=== PATIENT | male | born 1960 | race Caucasian/White ===

== ENCOUNTER → 2017-11-13 08:23 | Outpatient (CLI) | payer BC, SELFPAY ==
[2017-11-13 10:55] LABS: Anion Gap 9 (5-15); BUN 20 mg/dL (7-18); BUN/Creat Ratio 14.9 RATIO (10-20); Calcium,Total 9.4 mg/dL (8.5-10.1); Chloride 102 mmol/L (98-107); Cholesterol 133 mg/dL (200); Creatinine, Serum 1.34 mg/dL (0.70-1.30); EST Glomerular Filtration Rate 59 mL/min (>60); Est Glom Filt Rate - Afr Amer 71 mL/min (>60); Glucose 112 mg/dL (74-106); High Density Lipoprotein 44 mg/dL; PSA,Total - Annual Screen 1.55 ng/mL (0.00-4.00); Potassium 3.3 mmol/L (3.5-5.1); Sodium Level 141 mmol/L (136-145); Triglycerides 72 mg/dL; Very Low Density Lipoprotein 14 mg/dL (5-40)
== END ==
PROVIDERS: Family Provider Family Medicine; PCP Family Medicine; Visit Provider Family Medicine
DX: I10 Essential (primary) hypertension (principal); E78.00 Pure hypercholesterolemia, unspecified; Z12.5 Encounter for screening for malignant neoplasm of prostate
CPT/HCPCS: 36415; 80048; 80061; 84153; G0103

== ENCOUNTER → 2018-11-05 08:03 | Outpatient (CLI) | payer BC, SELFPAY ==
[2018-11-05 10:30] LABS: Anion Gap 5 (5-15); BUN 13 mg/dL (7-18); BUN/Creat Ratio 12.3 RATIO (10-20); Calcium,Total 9.2 mg/dL (8.5-10.1); Chloride 106 mmol/L (98-107); Cholesterol 163 mg/dL (200); Creatinine, Serum 1.06 mg/dL (0.70-1.30); EST Glomerular Filtration Rate 77 mL/min (>60); Est Glom Filt Rate - Afr Amer 93 mL/min (>60); Glucose 106 mg/dL (74-106); High Density Lipoprotein 47 mg/dL; Potassium 3.6 mmol/L (3.5-5.1); Sodium Level 141 mmol/L (136-145); Triglycerides 113 mg/dL; Very Low Density Lipoprotein 23 mg/dL (5-40)
== END ==
PROVIDERS: Family Provider Family Medicine; PCP Family Medicine; Referring Provider Family Medicine; Visit Provider Family Medicine
DX: E78.00 Pure hypercholesterolemia, unspecified (principal); I10 Essential (primary) hypertension; Z12.5 Encounter for screening for malignant neoplasm of prostate
CPT/HCPCS: 36415; 80048; 80061; 84153; G0103

== ENCOUNTER → 2019-04-02 08:08 | Outpatient (CLI) | payer BC, SELFPAY ==
[2019-04-02 10:59] LABS: Anion Gap 5 (5-15); BUN 13 mg/dL (7-18); BUN/Creat Ratio 11.6 RATIO (10-20); Calcium,Total 9.2 mg/dL (8.5-10.1); Chloride 106 mmol/L (98-107); Creatinine, Serum 1.12 mg/dL (0.70-1.30); EST Glomerular Filtration Rate 72 mL/min (>60); Est Glom Filt Rate - Afr Amer 87 mL/min (>60); Glucose 107 mg/dL (74-106); Potassium 3.6 mmol/L (3.5-5.1); Sodium Level 139 mmol/L (136-145)
== END ==
PROVIDERS: Family Provider Family Medicine; PCP Family Medicine; Referring Provider Family Medicine; Visit Provider Orthopaedic Surgery
DX: M19.012 Primary osteoarthritis, left shoulder (principal); M25.512 Pain in left shoulder; M75.22 Bicipital tendinitis, left shoulder; S43.432A Superior glenoid labrum lesion of left shoulder, initial encounter; M75.112 Incomplete rotator cuff tear or rupture of left shoulder, not specified as traumatic
CPT/HCPCS: 36415; 80048

== ENCOUNTER 2019-06-27 16:30 | Outpatient (RCR) | payer BC, SELFPAY ==
--- NOTE | 2019-05-29 08:32 | HP.PTEVAL ---
Patient's Visit Information RADHA SMITH is a 58 year old M referred to Physical Therapy by Yamil Corona DO with a diagnosis of L shoulder SAD, DCE, biceps tenodesis and supra/infraspinatus repair. Date of Evaluation: 05/29/19 Physical Therapist: Lokesh Adorno DPT - Visit Plan Frequency: 2-3x /Week Duration: 6 Weeks Plan: Start with PROM for end range motion (gentle stretching, longer holds with increased consistency, educate spouse to progress with patient). Add in AROM, building to full AROM by 12 week post OP. NO STRENGTHENING until 12 weeks post op after physician visit. - Subjective Findings: Pt. is here today for his initial evaluation S/P L shoulder arthroscopy including; SAD, DCE, biceps tenodesis and supra/infraspinatus repair. DOS: 04/15/19. Pt. reports having no pain at rest. Pt. denies N/T. He is now out of his sling. Pt. does have some soreness when he sleeps, but is minimal. He is doing his exercises at home including his stretching his arm. Pt. is back to work without issues. He is hopeful to increase his ROM and strength in order to get back to all recreational activities without limitations. - Pain L shoulder Pain Intensity (Out of 10): 0 Pain Intensity Range: 0, 3 - Objective POSTURE: Pt. has normal posture in sitting and standing. Minimal FH and minimal rounded shoulder positioning. PALPATION: Pt. has mild tenderness along anterior shoulder and subacromial space. Pt. has mild tenderness in biceps muscle belly. NEURO: normal sensation, no limitations. ROM: R shoulder full without incerase in symptoms. L shoulder: PROM- flexion; 145deg, abd 140deg, ER at 30deg flexion 30deg. Pt. is doing very well with his ROM. AROM: flexion 90deg, abd 90deg, functional IR light PSIS no pain. MMT: DNT LUE. RUE- 5/5 througout. - Goals Goal 1:: Pt. to be I with HEP. Goal Time Frame: 4-6 Weeks Goal 2:: Pt. to have full PROM of L shoulder without increase in symptoms. Goal Time Frame: 2-4 Weeks Goal 3:: Pt. to have full AROM including flexion, abduction, functional ER to C5, and functional IR to L3. Goal Time Frame: 6 weeks Goal 4:: Pt. to sleep throughout the night without increase in symptoms. Goal Time Frame: 2-4 Weeks - Rehabilitation Potential Physical Therapy Diagnosis: Pt. is S/P L shoulder arthrolasty including: SAD, DCE, biceps tenodesis and supra/infraspinatus repair. DOS: 04/15/19. Pt. is doing very well with exercises and his ROM. Pt. would benefit from PT to work on ROM getting ready for strengthening/functional L shoulder exercises at the 12 week post op dixon. He carina benefit from PT working on PROM/AROM. Pt. is doing excellent at this point of recovery. Rehabilitation Potential: Excellent - Anticipated Interventions Patient/Client Instruction: Educate patient on: Condition, Plan of Care, Risk Factors, Benefits of Fitness Program For the Purpose of:: To facilitate caregiver knowledge, To improve self management, To prevent re-injury, To improve ability to perform tasks related to life management, To improve tolerance to ADL's Therapeutic Exercise to Include: Strength training, Power training, Endurance training, Postural training, Flexibilty training, Passive ROM, Active ROM, Scapular Strength/Stabilization For the Purpose of:: To decrease pain, To increase ROM, To improve nutrient delivery to tissue, To increase oxygenation perfusion, To improve muscle performance and motor function, To improve health of tissue, To decrease soft tissue restriction, To increase flexibility/ROM IF ES: Yes For the Purpose of:: To decrease pain, To increase ROM Thank you for the opportunity to evaluate your patient. For Medicare and Medicare HMO plans, please review the plan of care and approve it. It will need to be FAXED BACK to us at [phone] for Medicare purposes. For Medicare only, by signing this I certify the plan of care. Please let me know if there are questions or concerns regarding this plan of care. Physician Signature: Date:
--- NOTE | 2019-06-16 11:55 | HP.PTREVAL ---
Yamil Corona, DO, It has been my pleasure to treat RADHA SMITH over the last 8 visits for L shoulder SAD, DCE, biceps tenodesis and supra/infraspinatus repair. Please see the progress note below for an update on the physical therapy plan of care! Subjective: Pt. reports overall improvment with motion. He reports no pain with all activites including sleeping, work and exercises. Pt. is overall pleased. Pt. reports Its hard to not use it more. I urged him to focus on no lifting, but can do active ROM and reaching. pt. consents. Objective/Function: AROM: flexion 160deg. abd 163deg, functional ER C5, functional IR L4. PROM: Flexion 173deg, 171deg. ER at 90deg 88deg, IR at 90deg 50deg. Pt. reports that it is getting harder and harder to not use his arm for lawn mowing and useing his chainsaw etc. Pt. urged to continue procautions. He consents. Pt. is able to sleep without pain. Pt. is doing very well with all exercises and stretching. Cont. to focus on stretching progressing to full AROM. He is back to work wihtout issues. Plan Plan: Pt. continues to progess. Pt. is close to full ROM of L shoulder both passively and actively. Cont. to work on end ranges of motion. Focus on longer stretching rather than forceful ones. No strengthening until 12 weeks post TP. Goals Goal 1:: Pt. to be I with HEP. Goal Time Frame: 4-6 Weeks Goal Progress: Progressing Goal 2:: Pt. to have full PROM of L shoulder without increase in symptoms. Goal Time Frame: 2-4 Weeks Goal Progress: Progressing Goal 3:: Pt. to have full AROM including flexion, abduction, functional ER to C5, and functional IR to L3. Goal Time Frame: 6 weeks Goal Progress: Progressing Goal 4:: Pt. to sleep throughout the night without increase in symptoms. Goal Time Frame: 2-4 Weeks Goal Progress: Goal Met Anticipated Interventions Patient/Client Instruction: Educate patient on: Condition, Plan of Care, Risk Factors, Benefits of Fitness Program For the Purpose of:: To facilitate caregiver knowledge, To improve self management, To prevent re-injury, To improve ability to perform tasks related to life management, To improve tolerance to ADL's Therapeutic Exercise to Include: Strength training, Power training, Endurance training, Postural training, Flexibilty training, Passive ROM, Active ROM, Scapular Strength/Stabilization For the Purpose of:: To decrease pain, To increase ROM, To improve nutrient delivery to tissue, To increase oxygenation perfusion, To improve muscle performance and motor function, To improve health of tissue, To decrease soft tissue restriction, To increase flexibility/ROM IF ES: Yes For the Purpose of:: To decrease pain, To increase ROM Please do not hesitate to contact me at [phone] by phone or if you have questions or concerns regarding this new plan of care! Sincerely, ABRAHAM WorthyT
--- NOTE | 2019-06-30 09:15 | HP.PTREVAL ---
Yamil Corona, , It has been my pleasure to treat RADHA SMITH over the last 10 visits for L shoulder SAD, DCE, biceps tenodesis and supra/infraspinatus repair. Please see the progress note below for an update on the physical therapy plan of care! Subjective: Pt. reports having no pain. Pt. reprots having some mild stiffness with overhead movements. HEP compliant. Objective/Function: L shoulder- PROM- Flexion 178deg, abd 176deg, ER at 90dge 88deg, IR at 90deg 50deg. AROM: flexion 170deg, abd 170deg, functional ER C5, functional IR L2. No pain noted with all movements. Pt. reports mild stiffness with all movements. He is sleeping without issues and is being HEP compliant. Plan Plan: Pt. is doign very well with all AAROM and AROM. I would like him to continue to stretch into end ranges of motions including rotational as tolerated. DO NOT force. I would like to focus on AROM here in clinic progressing as toelrated. He is to remain in phase II until cleared by doctor, anticipated around the 12 week post op date. Goals Goal 1:: Pt. to be I with HEP. Goal Time Frame: 4-6 Weeks Goal Progress: Progressing Goal 2:: Pt. to have full PROM of L shoulder without increase in symptoms. Goal Time Frame: 2-4 Weeks Goal Progress: Progressing Goal 3:: Pt. to have full AROM including flexion, abduction, functional ER to C5, and functional IR to L3. Goal Time Frame: 6 weeks Goal Progress: Progressing Goal 4:: Pt. to sleep throughout the night without increase in symptoms. Goal Time Frame: 2-4 Weeks Goal Progress: Goal Met Anticipated Interventions Patient/Client Instruction: Educate patient on: Condition, Plan of Care, Risk Factors, Benefits of Fitness Program For the Purpose of:: To facilitate caregiver knowledge, To improve self management, To prevent re-injury, To improve ability to perform tasks related to life management, To improve tolerance to ADL's Therapeutic Exercise to Include: Strength training, Power training, Endurance training, Postural training, Flexibilty training, Passive ROM, Active ROM, Scapular Strength/Stabilization For the Purpose of:: To decrease pain, To increase ROM, To improve nutrient delivery to tissue, To increase oxygenation perfusion, To improve muscle performance and motor function, To improve health of tissue, To decrease soft tissue restriction, To increase flexibility/ROM IF ES: Yes For the Purpose of:: To decrease pain, To increase ROM Please do not hesitate to contact me at [phone] by phone or if you have questions or concerns regarding this new plan of care! Sincerely, ABRAHAM WorthyT
--- NOTE | 2019-11-11 08:12 | HP.PT.NRP ---
RADHA SMITH was seen in my office for initial evaluation on 05/29/19. The following Plan of Care was established for this patient: Initial Frequency: 2-3x /Week Initial Duration: 6 Weeks Patient/Client Instruction: Educate patient on: Condition, Plan of Care, Risk Factors, Benefits of Fitness Program For the Purpose of:: To facilitate caregiver knowledge, To improve self management, To prevent re-injury, To improve ability to perform tasks related to life management, To improve tolerance to ADL's Therapeutic Exercise to Include: Strength training, Power training, Endurance training, Postural training, Flexibilty training, Passive ROM, Active ROM, Scapular Strength/Stabilization For the Purpose of:: To decrease pain, To increase ROM, To improve nutrient delivery to tissue, To increase oxygenation perfusion, To improve muscle performance and motor function, To improve health of tissue, To decrease soft tissue restriction, To increase flexibility/ROM IF ES: Yes For the Purpose of:: To decrease pain, To increase ROM This patient was last seen in our office 06/27/19. Pertinent comments regarding their Physical therapy will appear below: Pt. was seen post RTC repair. Pt. was doing very well. He was to start doing his exercises on his own and follow back up when he was able to start phase III. Pt. has not art seen in 4 months and will be DC from PT at this point in time. At this point I will be discontinuing this patient from physical therapy. I would be happy to see this patient again in the future if found appropriate by the physician. Thank you! Lokesh Adorno DPT
== END 2019-06-27 19:00 | disposition home or self-care (01) ==
LOC: PT 16:30
PROVIDERS: Family Provider Family Medicine; PCP Family Medicine; Referring Provider Orthopaedic Surgery; Visit Provider Orthopaedic Surgery
DX: M19.012 Primary osteoarthritis, left shoulder (principal); M75.22 Bicipital tendinitis, left shoulder; S43.432D Superior glenoid labrum lesion of left shoulder, subsequent encounter; M75.112 Incomplete rotator cuff tear or rupture of left shoulder, not specified as traumatic; Z47.89 Encounter for other orthopedic aftercare
CPT/HCPCS: 97110; 97161; 97530

== ENCOUNTER → 2019-11-03 08:09 | Outpatient (CLI) | payer BC, SELFPAY ==
[2019-11-03 10:02] LABS: AST(SGOT) 25 U/L (15-37); Alanine Aminotransfer ALT/SGPT 50 U/L (16-61); Albumin, Serum 3.9 g/dL (3.2-5.0); Alkaline Phosphatase 76 U/L (45-117); Anion Gap 5 (5-15); BUN 17 mg/dL (7-18); BUN/Creat Ratio 14.8 RATIO (10-20); Chloride 102 mmol/L (98-107); Cholesterol 154 mg/dL (200); Creatinine, Serum 1.15 mg/dL (0.70-1.30); EST Glomerular Filtration Rate 69 mL/min (>60); Est Glom Filt Rate - Afr Amer 84 mL/min (>60); Globulin 3.9 g/dL (2.2-4.2); Glucose 123 mg/dL (74-106); High Density Lipoprotein 45 mg/dL; Potassium 3.3 mmol/L (3.5-5.1); Protein, Total 7.8 g/dL (6.4-8.2); Sodium Level 136 mmol/L (136-145); Triglycerides 105 mg/dL; Very Low Density Lipoprotein 21 mg/dL (5-40)
== END ==
PROVIDERS: PCP Family Medicine; Referring Provider Family Medicine; Visit Provider Family Medicine
DX: I10 Essential (primary) hypertension (principal)
CPT/HCPCS: 36415; 80053; 80061

== ENCOUNTER → 2020-05-20 08:04 | Outpatient (CLI) | payer BC, SELFPAY ==
[2020-05-20 10:20] LABS: AST(SGOT) 22 U/L (15-37); Alanine Aminotransfer ALT/SGPT 38 U/L (16-61); Albumin, Serum 3.7 g/dL (3.2-5.0); Alkaline Phosphatase 66 U/L (45-117); Anion Gap 6 (5-15); BUN 16 mg/dL (7-18); BUN/Creat Ratio 12.5 RATIO (10-20); Calcium,Total 9.1 mg/dL (8.5-10.1); Chloride 103 mmol/L (98-107); Cholesterol 137 mg/dL (200); Creatinine, Serum 1.28 mg/dL (0.70-1.30); EST Glomerular Filtration Rate 61 mL/min (>60); Est Glom Filt Rate - Afr Amer 74 mL/min (>60); Globulin 3.6 g/dL (2.2-4.2); Glucose 108 mg/dL (74-106); High Density Lipoprotein 43 mg/dL; Potassium 3.5 mmol/L (3.5-5.1); Protein, Total 7.3 g/dL (6.4-8.2); Sodium Level 140 mmol/L (136-145); Triglycerides 70 mg/dL; Very Low Density Lipoprotein 14 mg/dL (5-40)
== END ==
PROVIDERS: PCP Family Medicine; Referring Provider Family Medicine; Visit Provider Family Medicine
DX: I10 Essential (primary) hypertension (principal)
CPT/HCPCS: 36415; 80053; 80061

== ENCOUNTER → 2021-05-06 08:04 | Outpatient (CLI) | payer OTHER, SELFPAY ==
[2021-05-06 10:21] LABS: AST(SGOT) 18 U/L (15-37); Alanine Aminotransfer ALT/SGPT 38 U/L (16-61); Albumin, Serum 3.9 g/dL (3.2-5.0); Alkaline Phosphatase 71 U/L (45-117); Anion Gap 9 (5-15); BUN 19 mg/dL (7-18); BUN/Creat Ratio 15.8 RATIO (10-20); Calcium,Total 9.2 mg/dL (8.5-10.1); Chloride 104 mmol/L (98-107); Cholesterol 130 mg/dL (200); EST Glomerular Filtration Rate 66 mL/min (>60); Est Glom Filt Rate - Afr Amer 80 mL/min (>60); Globulin 3.9 g/dL (2.2-4.2); Glucose 106 mg/dL (74-106); High Density Lipoprotein 47 mg/dL; PSA,Total - Annual Screen 1.04 ng/mL (0.00-4.00); Potassium 3.5 mmol/L (3.5-5.1); Protein, Total 7.8 g/dL (6.4-8.2); Sodium Level 141 mmol/L (136-145); Triglycerides 63 mg/dL; Very Low Density Lipoprotein 13 mg/dL (5-40)
== END ==
PROVIDERS: Family Medicine; PCP Family Medicine; Referring Provider Family Medicine; Visit Provider Family Medicine
DX: I10 Essential (primary) hypertension (principal); Z12.5 Encounter for screening for malignant neoplasm of prostate
CPT/HCPCS: 36415; 80053; 80061; 84153; G0103

== ENCOUNTER → 2021-05-24 13:48 | Outpatient (CLI) | payer OTHER, SELFPAY ==
--- NOTE | 2021-05-24 13:56 | CDU_ITS ---
Reason For Study: carotid artery disease Rt. Velocities/BP Lt. Velocities/BP Prox CCA 104.7/14.7 cm/sec. Prox CCA 112.5/19.9 cm/sec. Mid CCA 89.1/21.3 cm/sec. Mid CCA 120.3/19.9 cm/sec. Dist CCA 95.6/18.6 cm/sec. Dist CCA 87.7/17.3 cm/sec. Prox ICA 104.7/21.3 cm/sec. Prox ICA 93.0/18.6 cm/sec. Mid ICA 79.9/20.0 cm/sec. Mid ICA 63.0/20.0 cm/sec. Dist ICA 49.9/17.3 cm/sec. Dist ICA 70.8/23.9 cm/sec. Rt. ICA/CCA = 1.2. Lt. ICA/CCA = .8. Prox ECA 107.3/13.4 cm/sec. Prox ECA 132.1/12.1 cm/sec. Rt. Vert. 44.7/14.7 cm/sec. Lt. Vert. 52.5/10.8 cm/sec. Right Extracranial There is intimal thickening but no significant atherosclerotic plaque noted in the right common carotid artery. There is intimal thickening but no significant atherosclerotic plaque noted in the right internal carotid artery. There is intimal thickening but no significant atherosclerotic plaque noted in the right external carotid artery. Antegrade flow is noted in the right vertebral artery. Left Extracranial There is intimal thickening but no significant atherosclerotic plaque noted in the left common carotid artery. There is heterogeneous, irregular atherosclerotic plaque noted in the left internal carotid artery. There is heterogeneous, irregular atherosclerotic plaque noted in the left external carotid artery. Antegrade flow is noted in the left vertebral artery. Procedure Carotid Duplex 80193. This is a Carotid Duplex examination using B-mode, color flow and specral Doppler. The exam was diagnostic. Exam performed in department. VL/Carotid Duplex Ultrasound Interpretation Summary Intimal thickening at the proximal right internal carotid artery with less than 50% stenosis Less than 50% stenosis right external carotid artery Mild irregular plaque at the proximal left internal carotid artery with less th an 50% stenosis Less than 50% stenosis left external carotid artery Patent antegrade vertebral arteries bilaterally Findings do not suggest any advancement of disease from a previous examination of August 26, 2015 Ordering Physician: Janak White Performed By: Barrera Lopez RVT
== END ==
PROVIDERS: PCP Family Medicine; Referring Provider Family Medicine; Visit Provider Family Medicine
DX: I77.9 Disorder of arteries and arterioles, unspecified (principal)
CPT/HCPCS: 93880

== ENCOUNTER → 2022-05-29 | Outpatient (CLI) | payer BC, SELFPAY ==
[2022-05-29 10:37] LABS: Anion Gap 9 (5-15); BUN 18 mg/dL (7-18); BUN/Creat Ratio 15.5 RATIO (10-20); Calcium,Total 9.3 mg/dL (8.5-10.1); Chloride 104 mmol/L (98-107); Cholesterol 149 mg/dL (200); Creatinine, Serum 1.16 mg/dL (0.70-1.30); EST Glomerular Filtration Rate 68 mL/min (>60); Est Glom Filt Rate - Afr Amer 82 mL/min (>60); Glucose 116 mg/dL (74-106); High Density Lipoprotein 47 mg/dL; Potassium 3.6 mmol/L (3.5-5.1); Sodium Level 141 mmol/L (136-145); Triglycerides 76 mg/dL; Very Low Density Lipoprotein 15 mg/dL (5-40)
== END | disposition home or self-care (01) ==
LOC: MFPLAB 09:07
PROVIDERS: PCP Family Medicine; Referring Provider Family Medicine; Visit Provider Family Medicine
DX: I10 Essential (primary) hypertension (principal)
CPT/HCPCS: 36415; 80048; 80061

== ENCOUNTER 2022-06-29 08:06 | Emergency (ER) | payer BC, SELFPAY ==
[2022-06-29 08:07] VITALS: BP 175/92; PULSE 63; RESP 18; TEMP 36.1; O2SAT 98; BMI 31.7
[2022-06-29 08:56] LABS: Red Blood Cells-Urine 0 SEEN /hpf (0-5); White Blood Cells 0 SEEN /hpf (0-5)
[2022-06-29 08:57] LABS: Absolute Lymphocyte Count 1.61 X10^3/uL (0.83-4.51); Absolute Neutrophil Count 5.8 X10^3/uL (2.0-7.7); Basophil# 0.05 X10^3/uL; Basophil% 0.6 % (0-1); Color, Urine Yellow (Yellow); Eosinophils% 2.4 % (0-5); Glucose, Dipstick Normal (Normal); Hematocrit 43.3 % (40-54); Ketone-Dipstick Negative (Negative); Leukocyte Esterase-Dipstick Negative /ul (Negative); Lymphocyte # 1.61 X10^3/ul (0.83-4.51); Lymphocyte % 18.9 % (19-41); Mean Corp Hgb Conc 34.6 g/dL (32-36); Mean Corpuscular Volume 86.6 fL (80-94); Mean Platelet Vol. 11.4 fl (6.2-12.0); Monocyte% 9.4 % (0-10); NRBC Flagged by Analyzer 0 % (0-5); Neutrophil % 68.2 % (47-70); Nitrite-Dipstick Negative (Negative); Occult Blood-Urine 25 /ul (Negative); Platelet Count 218 K/mm3 (150-450); Protein-Dipstick 15 mg/dl (Negative); RBC Distribution Width CV 12.7 % (11.6-14.6); RBC Distribution Width SD 40.1 fl (35.1-43.9); Urine Bilirubin Dipstick Negative (Negative); Urine Clarity Sl. Cloudy (Clear); Urine Urobilinogen Normal (Normal); White Blood Count 8.5 K/mm3 (4.4-11.0)
--- NOTE | 2022-06-29 09:00 | CT_ITS ---
STUDY: CT ABDOMEN AND PELVIS WITHOUT CONTRAST REASON FOR EXAM: Male, 61 years old. One week history of worsening left flank pain. History of kidney stones. RADIATION DOSAGE (If Supplied By Facility): CTDIvol = ( 12.96 ) mGy, DLP = ( 712.10 ) mGycm TECHNIQUE: Transaxial images were obtained from the dome of the diaphragm to the symphysis pubis without oral contrast, and without intravenous contrast. Sagittal and coronal images were reconstructed. Individualized dose optimization techniques were used for this CT. COMPARISON: None. FINDINGS: Mild degree of increased linear markings at the lung bases suggestive of bibasilar atelectasis and/or scarring. Coronary artery calcification. Normal liver. Normal gallbladder and extrahepatic biliary system. Normal spleen. Normal pancreas. Normal bilateral adrenal glands. Mild degree of nonspecific bilateral perinephric stranding. Mild degree of left hydronephrosis and left hydroureter to a 6.3 mm calculus in the midportion of the left ureter. There are several nonobstructive left intrarenal calculi. This is more prominent in the lower pole with a 6.3 mm calculus. Punctate calculus in the lower pole calyx of the right kidney. There is a small hiatal hernia. Normal small intestine. Normal colon. The appendix is visualized and appears normal. There is scattered atherosclerotic calcification of the abdominal aorta, without a demonstrated aneurysm. Normal inferior vena cava. Normal retroperitoneum. Normal urinary bladder. There is a small umbilical hernia containing fat. Small right inguinal hernia containing fat. There are mild degenerative changes of the visualized lumbar spine. CT/Abdomen/Pelvis without Cont IMPRESSION: 6.3 mm calculus in the midportion of the left ureter causing left hydronephrosis and left hydroureter. Bilateral nonobstructive intrarenal calculi more prominent on the left side with a 6.3 mm calculi seen in the lower pole calyx. Small umbilical hernia and small right inguinal hernia containing fat. Electronically Signed: Mikal Bonilla MD at 9:51 EST ,
--- NOTE | 2022-06-29 09:00 | EX.ED.GUMALE ---
HPI History of Present Illness Chief Complaint: Flank Pain Narrative Narrative: 61-year-old male presenting with left flank pain. He states he has a history of kidney stones. The last 1 was several months ago. He states that he has not had dysuria or hematuria. He reports the pain is intermittent over the last 2 weeks and is sharp. It is in the left flank and radiates around to the front. Patient has had nausea associated with this. Patient also reports that he had diarrhea today. He also complains of chills. Patient has not had a fever. PFSH PFS Home Medications amlodipine 10 mg tablet 10 mg PO BID 06/29/22 [History Last Taken Unknown] atorvastatin 10 mg tablet 10 mg PO MOWEFR 06/29/22 [History Last Taken Unknown] bisoprolol 10 mg-hydrochlorothiazide 6.25 mg tablet 1 tab PO DAILY 06/29/22 [History Last Taken Unknown] clonazepam 0.5 mg tablet 0.5 mg PO BID 06/29/22 [History Last Taken Unknown] hydrocodone-acetaminophen 5-325mg 5mg-325mg 1 tab PO Q6H PRN pain 3 days #12 tabs 06/29/22 [Rx Last Taken Unknown] ondansetron 4 mg disintegrating tablet 4 mg PO Q8H PRN nausea and vomiting #14 tabs 06/29/22 [Rx Last Taken Unknown] ramipril 10 mg capsule 10 mg PO BID 06/29/22 [History Last Taken Unknown] sertraline 25 mg tablet 25 mg PO DAILY 06/29/22 [History Last Taken Unknown] Allergy/AdvReac Type Severity Reaction Status Date / Time No Known Allergies Allergy Verified 06/29/22 08:09 Social History Smoking Status: Never smoker ROS ROS ED Constitutional Constitutional ED: Reports chills; Denies fever(s) ENT ENT ED: Denies rhinorrhea or sore throat Cardiovascular Cardiovascular: Denies chest pain or palpitations Respiratory/Chest Respiratory/Chest: Denies cough or dyspnea Gastrointestinal Gastrointestinal: Reports abdominal pain and nausea Genitourinary Genitourinary ED: Denies dysuria or hematuria Musculoskeletal Musculoskeletal: Reports back pain; Denies arthralgias Integumentary Denies abscess Neurologic Neurologic: Denies headache(s) or paresthesias Psychiatric Psychiatric: Denies anxiety or depression EXAM Physical Exam Const Vital Signs: 06/29/22 08:07 06/29/22 08:28 Temperature 97 F L Temperature Source Temporal Pulse Rate 63 Respiratory Rate 18 Respiratory Effort Normal Non-Labored Respiratory Pattern Normal Blood Pressure 175/92 H Blood Pressure Mean 119 Pulse Ox 98 Oxygen Delivery Method Room Air Positive well nourished General Appearance ED: NAD; Negative for pallor HEENT Reports moist mucous membranes normocephalic and atraumatic Eyes PERRL and EOMs intact bilaterally Resp normal respiratory effort and clear to auscultation bilaterally Auscultation: Negative for rales, rhonchi or wheezes Cardio regular rate and regular rhythm GI Palpation: tender LLQ no CVA tenderness Back/Spine no CVA tenderness Extremity normal to inspection Neuro oriented x3 and CN's II-XII intact bilaterally Sensorium / Orientation: alert Psych mental status grossly normal Skin General Skin Exam: Negative for jaundice or pallor MDM MDM MDM Narrative Medical decision making narrative: Patient presenting with left flank pain and left lower quadrant pain. He states he had chills this morning but did not have a fever. Patient has history of kidney stones. He does not have CVA tenderness on the left but does have left-sided tenderness to palpation. Obtained a urinalysis which shows small amount of occult blood. His CBC shows a normal white blood count of 8.5 which makes diverticulitis less likely. I will obtain a noncontrast CT of the abdomen to assess for kidney stone. Patient declines analgesia. CBC and BMP are unremarkable with exception of a mild hypokalemia with a potassium of 3.3. Urinalysis negative for infection. CT of the abdomen pelvis without contrast was performed and shows a 6.3 mm mid ureteral stone on the left. This is consistent with the patient's pain. Patient has not required any medication here. I will give him [place] and Zofran for home. He is given follow-up with urology. Return precautions discussed. Impression: 1. Left hydroureter 2. Left hydronephrosis 3. Hematuria 4. 6.3 mm ureteral stone Lab Data Attestation: I reviewed the patient's lab results. Labs: Laboratory Results - last 24 hr 06/29/22 06/29/22 06/29/22 08:31 08:31 08:31 WBC 8.5 RBC 5.00 Hgb 15.0 Hct 43.3 MCV 86.6 MCH 30.0 MCHC 34.6 RDW Std Deviation 40.1 RDW Coeff of Melinda 12.7 Plt Count 218 MPV 11.4 Immature Gran % (Auto) 0.500 Neut % (Auto) 68.2 Lymph % (Auto) 18.9 L [place] % (Auto) 9.4 Eos % (Auto) 2.4 Baso % (Auto) 0.6 Absolute Neuts (auto) 5.8 Absolute Lymphs (auto) 1.61 Nucleated RBC % 0 Sodium 141 Potassium 3.3 L Chloride 104 Carbon Dioxide 30.0 Anion Gap 7 BUN 14 Creatinine 1.16 Estim Creat Clear Calc 67.72 Est GFR (MDRD) Af Amer 82 Est GFR (MDRD) Non-Af 68 BUN/Creatinine Ratio 12.1 Glucose 143 H Calcium 9.4 Urine Color Yellow Urine Clarity Sl. Cloudy Urine pH 7.0 Ur Specific [place] 1.010 Urine Protein 15 H Urine Glucose (UA) Normal Urine Ketones Negative Urine Occult Blood 25 H Urine Nitrite Negative Urine Bilirubin Negative Urine Urobilinogen Normal Ur Leukocyte Esterase Negative Urine RBC 0 SEEN Urine WBC 0 SEEN Ur Squamous Epith Cells 0-5 SEEN Urine Bacteria 1+ Urine Mucus RARE Radiography Diagnostic Testing: Clinical Impression(s) from Imaging Studies Abdomen/Pelvis CT 06/29/22 09:00 IMPRESSION: 6.3 mm calculus in the midportion of the left ureter causing left hydronephrosis and left hydroureter. Bilateral nonobstructive intrarenal calculi more prominent on the left side with a 6.3 mm calculi seen in the lower pole calyx. Small umbilical hernia and small right inguinal hernia containing fat. Electronically Signed: Mikal Bonilla MD at 9:51 EST , Discharge Plan Triage Chief Complaint: Flank Pain ED Provider: Eric Olivo Dx/Rx/DC Orders Instructions: ED Kidney Stone w/ Colic Prescriptions: New hydrocodone-acetaminophen 5-325 mg tablet 1 tab PO Q6H PRN (Reason: pain) 3 Days Qty: 12 0RF ondansetron 4 mg tablet,disintegrating 4 mg PO Q8H PRN (Reason: nausea and vomiting) Qty: 14 0RF No Action atorvastatin 10 mg tablet 10 mg PO MOWEFR Label Comments: TAKE 1 TABLET BY MOUTH EVERY MON/WED/FRI bisoprolol-hydrochlorothiazide 10-6.25 mg tablet 1 tab PO DAILY Label Comments: Take 1 tablet by mouthCdaily clonazepam 0.5 mg tablet 0.5 mg PO BID Label Comments: TAKE 1 TABLET BY MOUTHTTWICE DAILY amlodipine 10 mg tablet 10 mg PO BID Label Comments: TAKE 1 TABLET BY MOUTHTONCE DAILYM sertraline 25 mg tablet 25 mg PO DAILY Label Comments: Take 1 tablet by mouthNdaily ramipril 10 mg capsule 10 mg PO BID Label Comments: TAKE 1 CAPSULE BY MOUTHCONCE DAILY Primary Care Provider: Janak White Referrals: Edmar Pedraza MD [Med Staff - Active Staff] - As soon as possible Janak White MD [Primary Care Provider] - Disposition Disposition: Home, Self Care
[2022-06-29 09:05] LABS: Bacteria 1+ /hpf (None Seen); Mucous, Urine RARE /hpf (<or=2+); Squamous Epithelial Cells - UA 0-5 SEEN /hpf (0-5)
[2022-06-29 09:10] LABS: Anion Gap 7 (5-15); BUN 14 mg/dL (7-18); BUN/Creat Ratio 12.1 RATIO (10-20); Calcium,Total 9.4 mg/dL (8.5-10.1); Chloride 104 mmol/L (98-107); Creatinine, Serum 1.16 mg/dL (0.70-1.30); EST Glomerular Filtration Rate 68 mL/min (>60); Est Glom Filt Rate - Afr Amer 82 mL/min (>60); Estimated Creatinine Clearance 67.72 ml/min; Glucose 143 mg/dL (74-106); Potassium 3.3 mmol/L (3.5-5.1); Sodium Level 141 mmol/L (136-145)
[2022-06-29 11:12] VITALS: BP 124/77; PULSE 71; RESP 16; O2SAT 98
== END 2022-06-29 11:13 | disposition home or self-care (01) ==
PROVIDERS: Emergency Provider Student in an Organized Health Care Education/Training Program; PCP Family Medicine; Visit Provider Student in an Organized Health Care Education/Training Program
DX: N13.2 Hydronephrosis with renal and ureteral calculous obstruction (principal); N13.4 Hydroureter; R31.9 Hematuria, unspecified; E87.6 Hypokalemia; R10.32 Left lower quadrant pain
CPT/HCPCS: 74176; 80048; 81001; 85025; 99284; A4216

== ENCOUNTER → 2022-07-05 | Outpatient (CLI) | payer BC, SELFPAY ==
--- NOTE | 2022-07-05 11:55 | EKG12_ITS ---
Test Reason : PRE-OP Blood Pressure : / mmHG Vent. Rate : 065 BPM Atrial Rate : 065 BPM P-R Int : 154 ms QRS Dur : 114 ms QT Int : 426 ms P-R-T Axes : 033 032 -04 degrees QTc Int : 443 ms Normal sinus rhythm Nonspecific T wave abnormality Abnormal ECG Confirmed by NICKY LOZOYA, DANAE ([id number]), supervising editor trailer RADAMES TREVIZO ([id number]) on 07/06/2022 9:18:59 AM Referred By: HOWARD Confirmed By:DANAE SAUNDERS MD
== END | disposition home or self-care (01) ==
PROVIDERS: PCP Family Medicine; Visit Provider Urology
DX: Z01.810 Encounter for preprocedural cardiovascular examination (principal)
CPT/HCPCS: 93005

== ENCOUNTER → 2022-09-04 | Outpatient (CLI) | payer BC, SELFPAY ==
--- NOTE | 2022-09-04 09:12 | RAD_ITS ---
STUDY: X-RAY - ABDOMEN/PELVIS REASON FOR EXAM: Male, 61 years old. Renal calculi. TECHNIQUE: Single AP view of the abdomen / pelvis on 2 images. COMPARISON: CT of the abdomen and pelvis dated June 29, 2022. FINDINGS: Normal visualized lung bases. There is an unremarkable bowel gas pattern. There is no demonstrated free abdominal air. Multiple small calcifications projected over the left renal outline, most located in the lower pole of the left kidney and corresponding to the findings on the CT. 5 mm in diameter calcification projecting between the left spinous processes at the L3 and L4 vertebral bodies which was also seen on the CT. Normal soft tissue structures. Normal visualized osseous structures. RAD/Abdomen Single View IMPRESSION: Multiple left renal calculi and calcification projected over the left lower midabdomen as described. Electronically Signed: Jm Reynoso, at 11:27 EST ,
[2022-09-04 10:25] LABS: Hematocrit 41.2 % (40-54); Hemoglobin 14.4 g/dL (13.0-16.5); Mean Corpuscular Hgb 30.8 pg (27.0-32.0); Mean Platelet Vol. 11.3 fl (6.2-12.0); Platelet Count 231 K/mm3 (150-450); RBC Distribution Width CV 13.3 % (11.6-14.6); RBC Distribution Width SD 42.7 fl (35.1-43.9); Red Blood Count 4.68 M/mm3 (4.6-6.2); White Blood Count 8.4 K/mm3 (4.4-11.0)
[2022-09-04 11:09] LABS: Anion Gap 6 (5-15); BUN 15 mg/dL (7-18); BUN/Creat Ratio 12.3 RATIO (10-20); Calcium,Total 9.4 mg/dL (8.5-10.1); Chloride 105 mmol/L (98-107); Creatinine, Serum 1.22 mg/dL (0.70-1.30); EST Glomerular Filtration Rate 64 mL/min (>60); Est Glom Filt Rate - Afr Amer 78 mL/min (>60); Glucose 155 mg/dL (74-106); Potassium 3.4 mmol/L (3.5-5.1); Sodium Level 141 mmol/L (136-145)
== END | disposition home or self-care (01) ==
PROVIDERS: PCP Family Medicine; Visit Provider Urology
DX: Z01.812 Encounter for preprocedural laboratory examination (principal); N20.2 Calculus of kidney with calculus of ureter
CPT/HCPCS: 36415; 74018; 80048; 85027

== ENCOUNTER → 2022-10-10 | Outpatient (CLI) | payer BC, SELFPAY ==
--- NOTE | 2022-10-10 08:45 | RAD_ITS ---
INDICATION: KIDNEY STONE F/U EXAMINATION/TECHNIQUE: X-RAY - XR Abdomen 1 View COMPARISON: 09/04/2022. FINDINGS: BOWEL GAS PATTERN: Non-obstructive. No bowel or stomach distention. FREE AIR: Not assessed on a single supine view. ORGANOMEGALY: Not seen. CALCIFICATIONS: There is a 5 mm left lower pole calculus which appears stable. Previously visualized calculus inferior lateral to the L3 transverse process is no longer visualized. Bilateral pelvic calcifications likely phleboliths. LOWER CHEST: No acute pathology. BONES AND SOFT TISSUES: No acute pathology. RAD/Abdomen Single View IMPRESSION: 5 mm left lower pole calculus. Electronically Signed: Dell De La Rosa MD, NIKOLAS at 11:56 EDT ,
== END | disposition home or self-care (01) ==
LOC: RAD 08:28
PROVIDERS: PCP Family Medicine; Referring Provider Urology; Visit Provider Urology
DX: N20.2 Calculus of kidney with calculus of ureter (principal)
CPT/HCPCS: 74018

== ENCOUNTER → 2022-12-26 | Outpatient (CLI) | payer BC, SELFPAY ==
[2022-12-26 10:48] LABS: AST(SGOT) 22 U/L (15-37); Alanine Aminotransfer ALT/SGPT 50 U/L (16-61); Albumin, Serum 3.6 g/dL (3.2-5.0); Alkaline Phosphatase 73 U/L (45-117); Anion Gap 7 (5-15); BUN 16 mg/dL (7-18); BUN/Creat Ratio 14.3 RATIO (10-20); Calcium,Total 9.2 mg/dL (8.5-10.1); Chloride 107 mmol/L (98-107); Cholesterol 152 mg/dL (200); Creatinine, Serum 1.12 mg/dL (0.70-1.30); EST Glomerular Filtration Rate 71 mL/min (>60); Est Glom Filt Rate - Afr Amer 86 mL/min (>60); Globulin 3.6 g/dL (2.2-4.2); Glucose 120 mg/dL (74-106); High Density Lipoprotein 45 mg/dL; Potassium 3.1 mmol/L (3.5-5.1); Protein, Total 7.2 g/dL (6.4-8.2); Sodium Level 141 mmol/L (136-145); Triglycerides 105 mg/dL; Very Low Density Lipoprotein 21 mg/dL (5-40)
== END | disposition home or self-care (01) ==
LOC: MFPLAB 08:19
PROVIDERS: PCP Family Medicine; Visit Provider Family Medicine
DX: E78.00 Pure hypercholesterolemia, unspecified (principal)
CPT/HCPCS: 36415; 80053; 80061

== ENCOUNTER → 2023-06-19 | Outpatient (CLI) | payer BC, SELFPAY ==
[2023-06-19 10:26] LABS: Anion Gap 7 (5-15); BUN 15 mg/dL (7-18); BUN/Creat Ratio 12.4 RATIO (10-20); Chloride 103 mmol/L (98-107); Cholesterol 159 mg/dL (200); Creatinine, Serum 1.21 mg/dL (0.70-1.30); EST Glomerular Filtration Rate 65 mL/min (>60); Est Glom Filt Rate - Afr Amer 78 mL/min (>60); Glucose 120 mg/dL (74-106); High Density Lipoprotein 53 mg/dL; Potassium 3.3 mmol/L (3.5-5.1); Sodium Level 140 mmol/L (136-145); Triglycerides 85 mg/dL; Very Low Density Lipoprotein 17 mg/dL (5-40)
== END | disposition home or self-care (01) ==
LOC: MTLAB 08:00
PROVIDERS: PCP Family Medicine; Referring Provider Family Medicine; Visit Provider Family Medicine
DX: E78.00 Pure hypercholesterolemia, unspecified (principal)
CPT/HCPCS: 36415; 80048; 80061

== ENCOUNTER → 2023-10-18 | Outpatient (CLI) | payer BC, SELFPAY ==
--- NOTE | 2023-10-18 15:10 | RAD_ITS ---
INDICATION: CALCULUS OF KIDNEY EXAMINATION/TECHNIQUE: X-RAY - XR Abdomen 1 View COMPARISON: No relevant prior comparison studies available. FINDINGS: BOWEL GAS PATTERN: No abnormally distended, air-filled bowel loops or air fluid levels. FREE AIR: No free air below the diaphragm. ORGANOMEGALY: Not seen. CALCIFICATIONS: Several calcifications project over the inferior pole left kidney. Largest of which measures 3 x 6 mm. There are several pelvic phleboliths bilaterally. LOWER CHEST: Lung bases are clear. BONES AND SOFT TISSUES: No acute pathology. Mild enthesopathic changes iliac crests and ischial tuberosities. Mild degenerative changes symphysis pubis and sacroiliac joints. RAD/Abdomen Single View IMPRESSION: Left lower pole calcifications, largest of which measures 3 x 6 mm. No calcification along the course of the ureters. Electronically Signed: Yamil Lynn DO at 21:26 EDT ,
[2023-10-18 16:02] LABS: PSA,Total - Annual Screen 1.05 ng/mL (0.00-4.00)
== END | disposition home or self-care (01) ==
PROVIDERS: PCP Family Medicine; Referring Provider Urology; Visit Provider Urology
DX: N20.2 Calculus of kidney with calculus of ureter (principal); Z12.5 Encounter for screening for malignant neoplasm of prostate; J98.4 Other disorders of lung
CPT/HCPCS: 36415; 74018; 84153; G0103

== ENCOUNTER → 2023-11-30 | Outpatient (CLI) | payer BC, SELFPAY ==
[2023-11-30 11:09] LABS: Anion Gap 5 (5-15); BUN 17 mg/dL (7-18); Calcium,Total 9.2 mg/dL (8.5-10.1); Chloride 107 mmol/L (98-107); Cholesterol 144 mg/dL (200); EST Glomerular Filtration Rate 80 mL/min (>60); Est Glom Filt Rate - Afr Amer 97 mL/min (>60); Glucose 132 mg/dL (74-106); High Density Lipoprotein 50 mg/dL; Potassium 3.1 mmol/L (3.5-5.1); Sodium Level 139 mmol/L (136-145); Triglycerides 70 mg/dL; Very Low Density Lipoprotein 14 mg/dL (5-40)
== END | disposition home or self-care (01) ==
LOC: MFPLAB 08:53
PROVIDERS: PCP Family Medicine; Visit Provider Family Medicine
DX: I10 Essential (primary) hypertension (principal)
CPT/HCPCS: 36415; 80048; 80061

== ENCOUNTER → 2023-12-20 | Outpatient (CLI) | payer BC, SELFPAY ==
[2023-12-20 11:06] LABS: Anion Gap 9 (5-15); BUN 15 mg/dL (7-18); BUN/Creat Ratio 13.6 RATIO (10-20); Chloride 107 mmol/L (98-107); EST Glomerular Filtration Rate 72 mL/min (>60); Est Glom Filt Rate - Afr Amer 87 mL/min (>60); Glucose 121 mg/dL (74-106); Potassium 3.3 mmol/L (3.5-5.1); Sodium Level 140 mmol/L (136-145)
== END | disposition home or self-care (01) ==
LOC: MFPLAB 08:07
PROVIDERS: PCP Family Medicine; Visit Provider Family Medicine
DX: E87.6 Hypokalemia (principal)
CPT/HCPCS: 36415; 80048

== ENCOUNTER → 2024-06-02 | Outpatient (CLI) | payer BC, SELFPAY ==
[2024-06-02 13:06] LABS: Anion Gap 6 (5-15); BUN 14 mg/dL (7-18); Calcium,Total 9.3 mg/dL (8.5-10.1); Chloride 109 mmol/L (98-107); Cholesterol 151 mg/dL (200); Creatinine, Serum 1.08 mg/dL (0.70-1.30); EST Glomerular Filtration Rate 74 mL/min (>60); Est Glom Filt Rate - Afr Amer 89 mL/min (>60); Glucose 115 mg/dL (74-106); High Density Lipoprotein 51 mg/dL; Potassium 3.5 mmol/L (3.5-5.1); Sodium Level 142 mmol/L (136-145); Triglycerides 111 mg/dL; Very Low Density Lipoprotein 22 mg/dL (5-40)
== END | disposition home or self-care (01) ==
LOC: MFPLAB 09:18
PROVIDERS: PCP Family Medicine; Visit Provider Family Medicine
DX: I10 Essential (primary) hypertension (principal)
CPT/HCPCS: 36415; 80048; 80061

== ENCOUNTER → 2024-12-26 | Outpatient (CLI) | payer BC, SELFPAY ==
--- OUTSIDE RECORDS SUMMARY | 2024-12-26 09:30 | XMS RPT_ITS | CCD ---
Author Organization [facility] Care Team Providers Care Telecommunications Repairer Name Role Phone Dr. Janak Hickey Primary Care Provider Dr. Janak Corea Attending Provider Dr. Edmar Pedraza Referring Provider RUPERTO LOZOYA, DR JANAK Alcala Primary Care Physician RUPERTO LOZOYA, DR JANAK Alcala Primary Care Unavailnora BOYD MD, LYNDA Attending Unavailable Ruperto, Janak Primary Care Unavailable Ruperto, Janak Attending Unavailable Ruperto, Janak Primary Care Unavailable Ruperto, Janak Attending Unavailable Ruperto, Janak Primary Care Unavailable Ruperto, Janak Attending Unavailable Milo, Edmar Acevedo Attending Unavailable Milo, Edmar Acevedo Referring Unavailable Ruperto, Janak Primary Care Unavailable Medications Current Medications Medication Drug Class(es) Dates Sig (Normalized) Sig (Original) acetaminophen 325 mg / HYDROcodone bitartrate 5 mg oral tablet (4 sources) Opioid Agonist Start: 2 take 1 tablet by mouth every six hours Hydrocodone-Acet aminophen Active 1 TABLET PO EVERY 6 HOURS 12 3 June 29, 2022 amLODIPine 10 mg oral tablet (4 sources) Dihydropyridine Calcium Channel Kelly Start: 2 take 10 mg by mouth twice daily Amlodipine Active 10 MG PO TWICE A DAY June 29, 2022 1:00am atorvastatin 10 mg oral tablet (4 sources) HMG-CoA Reductase Inhibitor Start: 2 Atorvastatin Active 10 MG PO MOWEJune 29, 2022 1:00am bisoprolol fumarate 10 mg / hydroCHLOROthiazide 6.25 mg oral tablet (5 sources) Thiazide Diuretic, beta-Adrenergic Kelly Start: 2 take 1 tablet by mouth once daily Bisoprolol-Hansen chlorothiazide Active 1 TABLET PO DAILY June 29, 2022 1:00am Start: 02-26-2017 take 1 tablet by kc th once daily bisoprolol-hydrochlorothiazide 5 - 6.25 mg oral tablet Dose = 1 tab(s), Oral, Daily, # 30 tab(s) Start Date: 02/26/17 Status: Ordered cephalexin 500 mg oral capsule (1 source) Cephalosporin Antibacterial Start: 09-09-2023 End: 09-15-2023 cephalexin 500 mg oral capsule Dose : 500 mg = 1 cap(s), Oral, q6hr, # 12 cap(s), 0 Refill(s), 09/15/23 2:02:00 PM EST, 96 Start Date: 09/09/23 Stop Date: 09/15/23 Status: Ordered clonazePAM 0.5 mg oral tablet (4 sources) Benzodiazepine Start: 06-29-2022 take 0.5 mg by mouth twice daily Clonazepam Active 0.5 MG PO TWICE A DAY June 29, 2022 1:00am hydroCHLOROthiazide 25 mg oral tablet (1 source) Thiazide Diuretic Start: 02-26-2017 hydroCHLOROthiazide 25 mg oral tablet Dose : 25 mg = 1 tab(s), Oral, Daily Start Date: 02/26/17 Status: Ordered Misc Medication (1 source) Start: 07-04-2015 Misc Medication Start Date: 07/04/15 Status: Ordered ondansetron 4 mg disintegrating oral tablet (4 sources) Serotonin-3 Receptor Antagonist Start: 06-29-2022 take 4 mg by mouth every eight hours Ondansetron Active 4 MG PO Q8H 14 June 29, 2022 1:00am ramipril 10 mg oral capsule (5 sources) Angiotensin Converting Enzyme Inhibitor Start: 01-25-2018 take 10 mg by mouth twice daily Ramipril Active 10 MG PO TWICE A DAY June 29, 2022 1:00am sertraline 25 mg oral tablet (4 sources) Serotonin Reuptake Inhibitor Start: 06-29-2022 take 25 mg by mouth once daily Sertraline Active 25 MG PO DAILY June 29, 2022 1:00am Problems Active Problems Problem Classification Problem Date Documented Da te Episodic/Chronic Essential hypertension (2 sources) Hypertensive disorder; Translations: [Essential (primary) hypertension] Onset: 06-30-2024 07-04-2015 Chronic Open wounds of extremities (1 source) Laceration of toe; Translations: [Laceration without foreign body of unspecified toe without damage to nail, initial encounter] Onset: 09-09-2023 Episodic Past or Other Problems Problem Classification Problem Date Documented Da te Episodic/Chronic Calculus of urinary tract (5 sources) Renal colic; Translations: [Unspecified renal colic] Onset: 10-24-2023 06-29-2022 Episodic Fluid and electrolyte disorders (1 source) Hypokalemia; Translations: [Hypokalemia] Onset: 12-27-2023 Episodic Results Test Name Value Interpretation Reference Range Facility Basic Metabolic Profile (BMP )on 06-02-2024 BUN/CRE 13.0 RATIO Normal 10-20 [facility] Comment on above: Performed By: #### L 500.4100, L500.2500 #### [facility] [address] [place], [address] CA,Total 9.3 mg/dL Normal 8.5-10.1 [facility] Comment on above: Performed By: #### L 500.4100, L500.2500 #### [facility] [address] [place], [address] Chloride [Moles/Vol] 109 mmol/L High 98-107 [facility] Comment on above: Performed By: #### L 500.4100, L500.2500 #### [facility] [address] [place], [address] CO2 [Moles/Vol] 27.0 mmol/L Normal 21.0-32.0 [facility] Comment on above: Performed By: #### L 500.4100, L500.2500 #### [facility] [address] [place], [address] Creatinine [Mass/Vol] 1.08 mg/dL Normal 0.70-1.30 [facility] Comment on above: Result Comment: The validity of the calculated GFR GFRAA in patients over 70 years has not been determined. Clinical correlation is essential. Performed By: #### L 500.4100, L500.2500 #### [facility] [address] [place], [address] EST GFR - AA 89 mL/min Normal >60 [facility] Comment on above: Result Comment: Afri can Tristanian GFR Calc Performed By: #### L 500.4100, L500.2500 #### [facility] [address] [place], [address] GAP 6 Normal 5-15 [facility] Comment on above: Performed By: #### L 500.4100, L500.2500 #### [facility] [address] [place], [address] GFR/1.73 sq M.predicted among non-blacks MDRD (S/P/Bld) [Vol rate/Area] 74 mL/min/{1.73_m2} Normal >60 [facility] Comment on above: Result Comment: Non- GFR Calc Performed By: #### L 500.4100, L500.2500 #### [facility] [address] [place], [address] Glucose [Mass/Vol] 115 mg/dL High 74-106 [facility] Comment on above: Result Comment: Fast ing Glucose result from 100 to 125 mg/dL suggests IMPAIRED HOMEOSTASIS per A.D.A. criteria. Performed By: #### L 500.4100, L500.2500 #### [facility] [address] [place], [address] Potassium [Moles/Vol] 3.5 mmol/L Normal 3.5-5.1 [facility] Comment on above: Performed By: #### L 500.4100, L500.2500 #### [facility] [address] [place], [address] Sodium [Moles/Vol] 142 mmol/L Normal 136-145 [facility] Comment on above: Performed By: #### L 500.4100, L500.2500 #### [facility] [address] [place], [address] Urea nitrogen [Mass/Vol] 14 mg/dL Normal 7-18 [facility] Comment on above: Performed By: #### L 500.4100, L500.2500 #### [facility] [address] [place], [address] Lipid Profileon 06-02-2024 Cholesterol [Mass/Vol] 151 mg/dL Normal 200 [facility] Comment on above: Result Comment: <200 mg/dL Desirable 200-240 mg/dL Borderline >240 mg/dL High Risk Performed By: #### L 500.4100, L500.2500 #### [facility] [address] [place], [address] Cholesterol in HDL [Mass/Vol] 51 mg/dL Normal [facility] Comment on above: Result Comment: The drugs N-Acetylcysteine and Metamizole may falsely depress this assay. Reference Range HDL <40 mg/dL Low HDL Cholesterol HDL >or= 60 mg/dL High HDL Cholesterol Performed By: #### L 500.4100, L500.2500 #### [facility] [address] [place], [address] Cholesterol in LDL [Mass/Vol] 78 mg/dL Normal 0-130 [facility] Comment on above: Performed By: #### L 500.4100, L500.2500 #### [facility] [address] [place], [address] Cholesterol in VLDL [Mass/Vol] 22 mg/dL Normal 5-40 [facility] Comment on above: Performed By: #### L 500.4100, L500.2500 #### [facility] [address] [place], [address] Triglyceride [Mass/Vol] 111 mg/dL Normal [facility] Comment on above: Result Comment: The drugs N-Acetylcysteine and Metamizole may falsely depress this assay. Serum Triglycerides Reference Interval Normal <150 mg/dL Borderline high 150 - 199 mg/dL High 200 - 499 mg/dL Very High > or = 500 mg/dL Performed By: #### L 500.4100, L500.2500 #### [facility] [address] [place], [address] Basic Metabolic Profile (BMP )on 12-20-2023 BUN/CRE 13.6 RATIO Normal 10-20 [facility] Comment on above: Order Comment: Order Date: 12/04/23 Order Info: 0667- - BMP Performed By: #### L 500.2500 #### [facility] [address] [place], [address] CA,Total 9.0 mg/dL Normal 8.5-10.1 [facility] Comment on above: Order Comment: Order Date: 12/04/23 Order Info: 0667- - BMP Performed By: #### L 500.2500 #### [facility] [address] [place], [address] Chloride [Moles/Vol] 107 mmol/L Normal 98-107 [facility] Comment on above: Order Comment: Order Date: 12/04/23 Order Info: 0667- - BMP Performed By: #### L 500.2500 #### [facility] [address] [place], [address] CO2 [Moles/Vol] 24.0 mmol/L Normal 21.0-32.0 [facility] Comment on above: Order Comment: Order Date: 12/04/23 Order Info: 0667- - BMP Performed By: #### L 500.2500 #### [facility] [address] [place], [address] Creatinine [Mass/Vol] 1.10 mg/dL Normal 0.70-1.30 [facility] Comment on above: Order Comment: Order Date: 12/04/23 Order Info: 0667- - BMP Result Comment: The validity of the calculated GFR GFRAA in patients over 70 years has not been determined. Clinical correlation is essential. Performed By: #### L 500.2500 #### [facility] [address] [place], [place], [address] EST GFR - AA 87 mL/min Normal >60 [facility] Comment on above: Order Comment: Order Date: 12/04/23 Order Info: 0667- - BMP Result Comment: Afri can Tristanian GFR Calc Performed By: #### L 500.2500 #### [facility] [address] [place], [address] GAP 9 Normal 5-15 [facility] Comment on above: Order Comment: Order Date: 12/04/23 Order Info: 0667- - BMP Performed By: #### L 500.2500 #### [facility] [address] [place], [address] GFR/1.73 sq M.predicted among non-blacks MDRD (S/P/Bld) [Vol rate/Area] 72 mL/min/{1.73_m2} Normal >60 [facility] Comment on above: Order Comment: Order Date: 12/04/23 Order Info: 0667- - BMP Result Comment: Non- GFR Calc Performed By: #### L 500.2500 #### [facility] [address] [place], [address] Glucose [Mass/Vol] 121 mg/dL High 74-106 [facility] Comment on above: Order Comment: Order Date: 12/04/23 Order Info: 0667- - BMP Result Comment: Fast ing Glucose result from 100 to 125 mg/dL suggests IMPAIRED HOMEOSTASIS per A.D.A. criteria. Performed By: #### L 500.2500 #### [facility] [address] [place], [place], [address] Potassium [Moles/Vol] 3.3 mmol/L Low 3.5-5.1 [facility] Comment on above: Order Comment: Order Date: 12/04/23 Order Info: 0667-1 - BMP Performed By: #### L 500.2500 #### [facility] [address] [place], [address] Sodium [Moles/Vol] 140 mmol/L Normal 136-145 [facility] Comment on above: Order Comment: Order Date: 12/04/23 Order Info: 0667 - BMP Performed By: #### L 500.2500 #### [facility] [address] [place], [address] Urea nitrogen [Mass/Vol] 15 mg/dL Normal 7-18 [facility] Comment on above: Order Comment: Order Date: 12/04/23 Order Info: 0667 - BMP Performed By: #### L 500.2500 #### [facility] [address] [place], [address] Basic Metabolic Profile (BMP )on 11-30-2023 BUN/CRE 17.0 RATIO Normal 10-20 [facility] Comment on above: Performed By: #### L 500.2500, L500.4100 #### [facility] [address] [place], [address] CA,Total 9.2 mg/dL Normal 8.5-10.1 [facility] Comment on above: Performed By: #### L 500.2500, L500.4100 #### [facility] [address] [place], [address] Chloride [Moles/Vol] 107 mmol/L Normal 98-107 [facility] Comment on above: Performed By: #### L 500.2500, L500.4100 #### [facility] [address] [place], [address] CO2 [Moles/Vol] 27.0 mmol/L Normal 21.0-32.0 [facility] Comment on above: Performed By: #### L 500.2500, L500.4100 #### [facility] [address] [place], [address] Creatinine [Mass/Vol] 1.00 mg/dL Normal 0.70-1.30 [facility] Comment on above: Result Comment: The validity of the calculated GFR GFRAA in patients over 70 years has not been determined. Clinical correlation is essential. Performed By: #### L 500.2500, L500.4100 #### [facility] [address] [place], [address] EST GFR - AA 97 mL/min Normal >60 [facility] Comment on above: Result Comment: Afri can Tristanian GFR Calc Performed By: #### L 500.2500, L500.4100 #### [facility] [address] [place], [address] GAP 5 Normal 5-15 [facility] Comment on above: Performed By: #### L 500.2500, L500.4100 #### [facility] [address] [place], [address] GFR/1.73 sq M.predicted among non-blacks MDRD (S/P/Bld) [Vol rate/Area] 80 mL/min/{1.73_m2} Normal >60 [facility] Comment on above: Result Comment: Non- GFR Calc Performed By: #### L 500.2500, L500.4100 #### [facility] [address] [place], [address] Glucose [Mass/Vol] 132 mg/dL High 74-106 [facility] Comment on above: Result Comment: Fast ing Glucose result greater than or equal to 126 mg/dL suggests DIABETES MELLITUS per A.D.A. criteria. Performed By: #### L 500.2500, L500.4100 #### [facility] [address] [place], [address] Potassium [Moles/Vol] 3.1 mmol/L Low 3.5-5.1 [facility] Comment on above: Performed By: #### L 500.2500, L500.4100 #### [facility] [address] [place], [address] Sodium [Moles/Vol] 139 mmol/L Normal 136-145 [facility] Comment on above: Performed By: #### L 500.2500, L500.4100 #### [facility] [address] [place], [address] Urea nitrogen [Mass/Vol] 17 mg/dL Normal 7-18 [facility] Comment on above: Performed By: #### L 500.2500, L500.4100 #### [facility] [address] [place], [address] Lipid Profileon 11-30-2023 Cholesterol [Mass/Vol] 144 mg/dL Normal 200 [facility] Comment on above: Result Comment: <200 mg/dL Desirable 200-240 mg/dL Borderline >240 mg/dL High Risk Performed By: #### L 500.2500, L500.4100 #### [facility] [address] [place], [address] Cholesterol in HDL [Mass/Vol] 50 mg/dL Normal [facility] Comment on above: Result Comment: The drugs N-Acetylcysteine and Metamizole may falsely depress this assay. Reference Range HDL <40 mg/dL Low HDL Cholesterol HDL >or= 60 mg/dL High HDL Cholesterol Performed By: #### L 500.2500, L500.4100 #### [facility] [address] [place], [address] Cholesterol in LDL [Mass/Vol] 80 mg/dL Normal 0-130 [facility] Comment on above: Performed By: #### L 500.2500, L500.4100 #### [facility] [address] [place], [address] Cholesterol in VLDL [Mass/Vol] 14 mg/dL Normal 5-40 [facility] Comment on above: Performed By: #### L 500.2500, L500.4100 #### [facility] [address] [place], [address] Triglyceride [Mass/Vol] 70 mg/dL Normal [facility] Comment on above: Result Comment: The drugs N-Acetylcysteine and Metamizole may falsely depress this assay. Serum Triglycerides Reference Interval Normal <150 mg/dL Borderline high 150 - 199 mg/dL High 200 - 499 mg/dL Very High > or = 500 mg/dL Performed By: #### L 500.2500, L500.4100 #### [facility] [address] [place], [place], [address] Abdomen Single Viewon 2023 Abdomen Single View [facility] [address] [place] [address] Abdomen Single View MR#: [id number] Acct: [id number] Name: RADHA SMITH Rep #: [id number] : 1960 M 62 From: Yamil Lynn DO PCP: Dr. Janak Hickey MD Status: REG CLI Study: Abdomen Single View Date of Exam: 10/18/23 Exam# [id number] Ordering Dr: Edmar Pedraza MD -[id number] INDICATION: CALCULUS OF KIDNEY EXAMINATION/TECHNIQ UE: X-RAY - XR Abdomen 1 View COMPARISON: No relevant prior comparison studies available. FINDINGS: BOWEL GAS PATTERN: No abnormally distended, air-filled bowel loops or air fluid levels. FREE AIR: No free air below the diaphragm. ORGANOMEGALY: Not seen. CALCIFICATIONS: Several calcifications project over the inferior pole left kidney. Largest of which measures 3 x 6 mm. There are several pelvic phleboliths bilaterally. LOWER CHEST: Lung bases are clear. BONES AND SOFT TISSUES: No acute pathology. Mild enthesopathic changes iliac crests and ischial tuberosities. Mild degenerative changes symphysis pubis and sacroiliac joints. RAD/Abdomen Single View IMPRESSION: Left lower pole calcifications, largest of which measures 3 x 6 mm. No calcification along the course of the ureters. Electronically Signed: Yaiml Lynn, at 21:26 EDT , CC: Dr. Edmar Pedraza MD; Dr. Janak Hickey MD Administrative Program Specialist: Signed Normal [facility] No Panel InformationOrdered By: Edmar Pedraza on 10-18-2023 Prostate Specific Antigen Screen 1.05 ng/mL 0.00-4.00 [facility] Comment on above: This test was perfor med using the TPSA assay method for the[employer] chemistry system. Values obtained with differentassay methods cannot be used interchangably.When changing PSA assays in the course of monitoring apatient, additional sequential testing should be carriedout to confirm baseline values. PSA,Total - Annual Screenon 10-18-2023 PSA,TOT SCREEN 1.05 ng/mL Normal 0.00-4.00 [facility] Comment on above: Result Comment: This test was performed using the TPSA assay method for the [employer] chemistry system. Values obtained with different assay methods cannot be used interchangably. When changing PSA assays in the course of monitoring a patient, additional sequential testing should be carried out to confirm baseline values. Performed By: #### L 501.9910 #### [facility] [address] [place], [address] Basophil percentageOrdered B y: Janak Hickey on 06-19-2023 Chloride [Moles/Vol] 103 mmol/L 98-107 [facility] Cholesterol [Mass/Vol] 159 mg/dL <200 [facility] Comment on above: <200 mg/dL Desirable 200-240 mg/dL Borderline >240 mg/dL High Risk Glucose [Mass/Vol] 120 mg/dL 74-106 [facility] Comment on above: Fasting Glucose resu lt from 100 to 125 mg/dL suggests IMPAIRED HOMEOSTASIS per A.D.A. criteria. Potassium [Moles/Vol] 3.3 mmol/L 3.5-5.1 [facility] Sodium [Moles/Vol] 140 mmol/L 136-145 [facility] Triglyceride [Mass/Vol] 85 mg/dL <199 [facility] Comment on above: The drugs N-Acetylcy steine and Metamizole may falsely depress this assay.Serum Triglycerides Reference Interval Normal <150 mg/dL Borderline high 150 - 199 mg/dL High 200 - 499 mg/dL Very High > or = 500 mg/dL Laboratory - Chemistry and C hemistry - challengeOrdered By: Janak Hickey on 06-19-2023 CO2 [Moles/Vol] 30.0 mmol/L 21.0-32.0 [facility] Urea nitrogen/Creatinine [Mass ratio] 12.4 mg/mg 10-20 [facility] No Panel InformationOrdered By: Janak Hickey on 06-19-2023 Estimated GFR (MDRD) Amer 78 mL/min >60 [facility] Comment on above: GFR Calc Estimated GFR (MDRD) Non-Af Amer 65 mL/min >60 [facility] Comment on above: Non- GFR Calc Serum or plasma calcium misty urement (mass/volume)Ordered By: Janak Hickey on 06-19-2023 Calcium [Mass/Vol] 9.0 mg/dL 8.5-10.1 [facility] Serum or plasma cholesterol in HDL measurement (mass/volume)Ordered By: Janak Hickey on 06-19-2023 Cholesterol in HDL [Mass/Vol] 53 mg/dL >40 [facility] Comment on above: The drugs N-Acetylcy steine and Metamizole may falsely depress this assay. Reference Range HDL <40 mg/dL Low HDL Cholesterol HDL >or= 60 mg/dL High HDL Cholesterol Serum or plasma cholesterol in VLDL measurement (mass/volume)Ordered By: Janak Hickey on 06-19-2023 Cholesterol in VLDL [Mass/Vol] 17 mg/dL 5-40 [facility] Serum or plasma creatinine m easurement (mass/volume)Ordered By: Janak Hickey on 06-19-2023 Creatinine [Mass/Vol] 1.21 mg/dL 0.70-1.30 [facility] Comment on above: The validity of the calculated GFR & GFRAA in patients over 70 years has not been determined. Clinical correlation is essential. Serum or plasma low density lipoprotein (LDL) cholesterol measurement (mass/volume)Ordered By: Janak Hickey on 06-19-2023 Cholesterol in LDL [Mass/Vol] 89 mg/dL 0-130 [facility] Serum or plasma urea nitroge n measurement (mass/volume)Ordered By: Janak Hickey on 06-19-2023 Urea nitrogen [Mass/Vol] 15 mg/dL 7-18 [facility] Thin prep Papanicolaou smear with manual screeningOrdered By: Janak Hickey on 06-19-2023 Thin prep Papanicolaou smear with manual screening 7 5-15 [facility] Basophil percentageOrdered B y: Dr. Pedraza on 09-04-2022 Chloride [Moles/Vol] 105 mmol/L 98-107 [facility] Glucose [Mass/Vol] 155 mg/dL 74-106 [facility] Comment on above: Fasting Glucose resu lt greater than or equal to 126 mg/dL suggests DIABETES MELLITUS per A.D.A. criteria. Potassium [Moles/Vol] 3.4 mmol/L 3.5-5.1 [facility] Sodium [Moles/Vol] 141 mmol/L 136-145 [facility] WBC (Bld) [#/Vol] 8.4 10*3/uL 4.4-11.0 [facility] Blood erythrocytes count (nu mber/volume)Ordered By: Dr. Pedraza on 09-04-2022 RBC (Bld) [#/Vol] 4.68 10*6/uL 4.6-6.2 [facility] Blood hemoglobin measurement (mass/volume)Ordered By: Dr. Pedraza on 09-04-2022 Hemoglobin (Bld) [Mass/Vol] 14.4 g/dL 13.0-16.5 [facility] Blood platelet mean volumeOr dered By: Dr. Pedraza on 09-04-2022 Platelet mean volume (Bld) [Entitic vol] 11.3 fL 6.2-12.0 [facility] Determination of erythrocyte mean corpuscular volume (MCV)Ordered By: Dr. Pedraza on 09-04-2022 MCV (RBC) [Entitic vol] 88.0 fL [address] [facility] Hematocrit Auto (Bld) [Volum e fraction]Ordered By: Dr. Pedraza on 09-04-2022 Hematocrit (Bld) [Volume fraction] 41.2 % 40-54 [facility] Laboratory - Chemistry and C hemistry - challengeOrdered By: Dr. Pedraza on 09-04-2022 CO2 [Moles/Vol] 30.0 mmol/L 21.0-32.0 [facility] Urea nitrogen/Creatinine [Mass ratio] 12.3 mg/mg 10-20 [facility] Laboratory - Hematology and Cell countsOrdered By: Dr. Pedraza on 09-04-2022 Erythrocyte distribution width (RBC) [Entitic vol] 42.7 fL 35.1-43.9 [facility] Erythrocyte distribution width (RBC) [Ratio] 13.3 % 11.6-14.6 [facility] MCH (RBC) [Entitic mass] 30.8 pg 27.0-32.0 [facility] MCHC Auto (RBC) [Mass/Vol]Or dered By: Dr. Pedraza on 09-04-2022 MCHC (RBC) [Mass/Vol] 35.0 g/dL 32-36 [facility] No Panel InformationOrdered By: Dr. Pedraza on 09-04-2022 Estimated GFR (MDRD) Amer 78 mL/min >60 [facility] Comment on above: GFR Calc Estimated GFR (MDRD) Non-Af Amer 64 mL/min >60 [facility] Comment on above: Non- GFR Calc Platelets bldOrdered By: Dr. Pedraza on 09-04-2022 Platelets (Bld) [#/Vol] 231 10*3/uL 150-450 [facility] Serum or plasma calcium misty urement (mass/volume)Ordered By: Dr. Pedraza on 09-04-2022 Calcium [Mass/Vol] 9.4 mg/dL 8.5-10.1 [facility] Serum or plasma creatinine m easurement (mass/volume)Ordered By: Dr. Pedraza on 09-04-2022 Creatinine [Mass/Vol] 1.22 mg/dL 0.70-1.30 [facility] Comment on above: The validity of the calculated GFR & GFRAA in patients over 70 years has not been determined. Clinical correlation is essential. Serum or plasma urea nitroge n measurement (mass/volume)Ordered By: Dr. Pedraza on 09-04-2022 Urea nitrogen [Mass/Vol] 15 mg/dL 7-18 [facility] Thin prep Papanicolaou smear with manual screeningOrdered By: Dr. Pedraza on 09-04-2022 Thin prep Papanicolaou smear with manual screening 6 5-15 [facility] Absolute lymphocyte countOrd ered By: Dr. Olivo on 06-29-2022 Lymphocytes Auto (Unsp spec) [#/Vol] 1.61 10*3/uL 0.83-4.51 [facility] Basophil percentageOrdered B y: Dr. Olivo on 06-29-2022 Basophil percentage 0 SEEN /hpf 0-5 [facility] Basophils/100 WBC (Bld) 0.6 % 0-1 [facility] Chloride [Moles/Vol] 104 mmol/L 98-107 [facility] Eosinophils/100 WBC (Bld) 2.4 % 0-5 [facility] Glucose [Mass/Vol] 143 mg/dL 74-106 [facility] Comment on above: Fasting Glucose resu lt greater than or equal to 126 mg/dL suggests DIABETES MELLITUS per A.D.A. criteria. Neutrophils (Bld) [#/Vol] 5.8 10*3/uL 2.0-7.7 [facility] Neutrophils/100 WBC (Bld) 68.2 % 47-70 [facility] Potassium [Moles/Vol] 3.3 mmol/L 3.5-5.1 [facility] Sodium [Moles/Vol] 141 mmol/L 136-145 [facility] WBC (Bld) [#/Vol] 8.5 10*3/uL 4.4-11.0 [facility] Bilirubin Test strip Ql (U)O rdered By: Dr. Olivo on 06-29-2022 Bilirubin Ql (U) Negative Negative [facility] Blood erythrocytes count (nu mber/volume)Ordered By: Dr. Olivo on 06-29-2022 RBC (Bld) [#/Vol] 5.00 10*6/uL 4.6-6.2 [facility] Blood hemoglobin measurement (mass/volume)Ordered By: Dr. Olivo on 06-29-2022 Hemoglobin (Bld) [Mass/Vol] 15.0 g/dL 13.0-16.5 [facility] Blood lymphocytes/100 leukoc ytesOrdered By: Dr. Olivo on 06-29-2022 Lymphocytes/100 WBC (Bld) 18.9 % 19-41 [facility] Blood monocytes/100 leukocyt esOrdered By: Dr. Olivo on 06-29-2022 Monocytes/100 WBC (Bld) 9.4 % 0-10 [facility] Blood platelet mean volumeOr dered By: Dr. Olivo on 06-29-2022 Platelet mean volume (Bld) [Entitic vol] 11.4 fL 6.2-12.0 [facility] Determination of erythrocyte mean corpuscular volume (MCV)Ordered By: Dr. Olivo on 06-29-2022 MCV (RBC) [Entitic vol] 86.6 fL 80-94 [facility] Hematocrit Auto (Bld) [Volum e fraction]Ordered By: Dr. Olivo on 06-29-2022 Hematocrit (Bld) [Volume fraction] 43.3 % 40-54 [facility] Ketones Test strip Ql (U)Ord ered By: Dr. Olivo on 06-29-2022 Ketones Ql (U) Negative Negative [facility] Laboratory - Chemistry and C hemistry - challengeOrdered By: Dr. Olivo on 06-29-2022 CO2 [Moles/Vol] 30.0 mmol/L 21.0-32.0 [facility] Urea nitrogen/Creatinine [Mass ratio] 12.1 mg/mg 10-20 [facility] Laboratory - Hematology and Cell countsOrdered By: Dr. Olivo on 06-29-2022 Erythrocyte distribution width (RBC) [Entitic vol] 40.1 fL 35.1-43.9 [facility] Erythrocyte distribution width (RBC) [Ratio] 12.7 % 11.6-14.6 [facility] Immature granulocytes/100 WBC (Bld) 0.500 % 0.0-0.9 [facility] Comment on above: IG% - Immature Granu locytes (promyelocytes, myelocytes and metamyelocytes) > 1% indicates that a LEFT SHIFT is Present. MCH (RBC) [Entitic mass] 30.0 pg 27.0-32.0 [facility] Nucleated RBC/100 WBC (Bld) [Ratio] 0 % 0-5 [facility] MCHC Auto (RBC) [Mass/Vol]Or dered By: Dr. Olivo on 06-29-2022 MCHC (RBC) [Mass/Vol] 34.6 g/dL 32-36 [facility] Mucus LM Ql (Urine sed)Order ed By: Dr. Olivo on 06-29-2022 Mucus Ql (Urine sed) RARE /hpf [facility] Nitrite Test strip Ql (U)Ord ered By: Dr. Olivo on 06-29-2022 Nitrite Ql (U) Negative Negative [facility] No Panel InformationOrdered By: Dr. Olivo on 06-29-2022 Estimated Creatinine Clearance Calc 67.72 ml/min [facility] Estimated GFR (MDRD) Amer 82 mL/min >60 [facility] Comment on above: GFR Calc Estimated GFR (MDRD) Non-Af Amer 68 mL/min >60 [facility] Comment on above: Non- GFR Calc Platelets bldOrdered By: Dr. Olivo on 06-29-2022 Platelets (Bld) [#/Vol] 218 10*3/uL 150-450 [facility] Protein Test strip Ql (U)Ord ered By: Dr. Olivo on 06-29-2022 Protein Ql (U) 15 mg/dl Negative [facility] Serum or plasma calcium misty urement (mass/volume)Ordered By: Dr. Olivo on 06-29-2022 Calcium [Mass/Vol] 9.4 mg/dL 8.5-10.1 [facility] Serum or plasma creatinine m easurement (mass/volume)Ordered By: Dr. Olivo on 06-29-2022 Creatinine [Mass/Vol] 1.16 mg/dL 0.70-1.30 [facility] Comment on above: The validity of the calculated GFR & GFRAA in patients over 70 years has not been determined. Clinical correlation is essential. Serum or plasma urea nitroge n measurement (mass/volume)Ordered By: Dr. Olivo on 06-29-2022 Urea nitrogen [Mass/Vol] 14 mg/dL 7-18 [facility] Squamous epithelial cells de tection in urine sediment by light microscopyOrdered By: Dr. Olivo on 06-29-2022 Epithelial cells.squamous LM Ql (Urine sed) 0-5 SEEN /hpf 0-5 [facility] Thin prep Papanicolaou smear with manual screeningOrdered By: Dr. Olivo on 06-29-2022 Thin prep Papanicolaou smear with manual screening 7 5-15 [facility] Urine blood detectionOrdered By: Dr. Olivo on 06-29-2022 RBC Ql (U) 25 /ul Negative [facility] RBC Ql (U) 0 SEEN /hpf 0-5 [facility] Urine clarityOrdered By: Dr. Olivo on 06-29-2022 Clarity (U) Sl. Cloudy Clear [facility] Urine color determinationOrd ered By: Dr. Olivo on 06-29-2022 Color (U) Yellow Yellow [facility] Urine glucose detectionOrder ed By: Dr. Olivo on 06-29-2022 Glucose Ql (U) Normal mg/dl Normal [facility] Urine leukocyte esterase det ection by dipstickOrdered By: Dr. Olivo on 06-29-2022 Leukocyte esterase Test strip Ql (U) Negative Negative [facility] Urine pHOrdered By: Dr. Ronnie manzo on 06-29-2022 pH (U) 7.0 [pH] 5.0 - 8.0 [facility] Urine sediment bacteria coun t by microscopy (number/high power field)Ordered By: Dr. Olivo on 06-29-2022 Bacteria LM.HPF (Urine sed) [#/Area] 1 /[HPF] None Seen [facility] Urine specific gravity measu rementOrdered By: Dr. Olivo on 06-29-2022 Specific gravity (U) [Rel density] 1.010 1.002-1.030 [facility] Urobilinogen Auto test strip Ql (U)Ordered By: Dr. Olivo on 06-29-2022 Urobilinogen Ql (U) Normal mg/dl Normal [facility] Basophil percentageOrdered B y: Dr. Hickey on 05-29-2022 Chloride [Moles/Vol] 104 mmol/L 98-107 [facility] Cholesterol [Mass/Vol] 149 mg/dL <200 [facility] Comment on above: <200 mg/dL Desirable 200-240 mg/dL Borderline >240 mg/dL High Risk Glucose [Mass/Vol] 116 mg/dL 74-106 [facility] Comment on above: Fasting Glucose resu lt from 100 to 125 mg/dL suggests IMPAIRED HOMEOSTASIS per A.D.A. criteria. Potassium [Moles/Vol] 3.6 mmol/L 3.5-5.1 [facility] Sodium [Moles/Vol] 141 mmol/L 136-145 [facility] Triglyceride [Mass/Vol] 76 mg/dL <199 [facility] Comment on above: The drugs N-Acetylcy steine and Metamizole may falsely depress this assay.Serum Triglycerides Reference Interval Normal <150 mg/dL Borderline high 150 - 199 mg/dL High 200 - 499 mg/dL Very High > or = 500 mg/dL Laboratory - Chemistry and C hemistry - challengeOrdered By: Dr. Hickey on 05-29-2022 CO2 [Moles/Vol] 28.0 mmol/L 21.0-32.0 [facility] Urea nitrogen/Creatinine [Mass ratio] 15.5 mg/mg 10-20 [facility] No Panel InformationOrdered By: Dr. Hickey on 05-29-2022 Estimated GFR (MDRD) Amer 82 mL/min >60 [facility] Comment on above: GFR Calc Estimated GFR (MDRD) Non-Af Amer 68 mL/min >60 [facility] Comment on above: Non- GFR Calc Serum or plasma calcium misty urement (mass/volume)Ordered By: Dr. Hickey on 05-29-2022 Calcium [Mass/Vol] 9.3 mg/dL 8.5-10.1 [facility] Serum or plasma cholesterol in HDL measurement (mass/volume)Ordered By: Dr. Hickey on 05-29-2022 Cholesterol in HDL [Mass/Vol] 47 mg/dL >40 [facility] Comment on above: The drugs N-Acetylcy steine and Metamizole may falsely depress this assay. Reference Range HDL <40 mg/dL Low HDL Cholesterol HDL >or= 60 mg/dL High HDL Cholesterol Serum or plasma cholesterol in VLDL measurement (mass/volume)Ordered By: Dr. Hickey on 05-29-2022 Cholesterol in VLDL [Mass/Vol] 15 mg/dL 5-40 [facility] Serum or plasma creatinine m easurement (mass/volume)Ordered By: Dr. Hickey on 05-29-2022 Creatinine [Mass/Vol] 1.16 mg/dL 0.70-1.30 [facility] Comment on above: The validity of the calculated GFR & GFRAA in patients over 70 years has not been determined. Clinical correlation is essential. Serum or plasma low density lipoprotein (LDL) cholesterol measurement (mass/volume)Ordered By: Dr. Hickey on 05-29-2022 Cholesterol in LDL [Mass/Vol] 87 mg/dL 0-130 [facility] Serum or plasma urea nitroge n measurement (mass/volume)Ordered By: Dr. Hickey on 05-29-2022 Urea nitrogen [Mass/Vol] 18 mg/dL 7-18 [facility] Thin prep Papanicolaou smear with manual screeningOrdered By: Dr. Hickey on 05-29-2022 Thin prep Papanicolaou smear with manual screening 9 5-15 [facility] Vital Signs Date Time Vital Sign Value Performing Clinician Facility 09-09-2023 13:18-0500 Blood Pressure Cuff Size LYNDA BOYD MD [facility] 09-09-2023 13:18-0500 Blood Pressure Location LYNDA BOYD MD [facility] 09-09-2023 13:18-0500 Blood Pressure Method LYNDA BOYD MD [facility] 09-09-2023 13:18-0500 Body temperature 97.52 [degF] LYNDA BOYD MD [facility] 09-09-2023 13:18-0500 Diastolic Blood Pressure Non-Invasive 83 mm[Hg] LYNDA BOYD MD [facility] 09-09-2023 13:18-0500 Heart rate 58 /min LYNDA BOYD MD [facility] 09-09-2023 13:18-0500 Respiratory rate 18 /min LYNDA BOYD MD [facility] 09-09-2023 13:18-0500 Systolic Blood Pressure Non-Invasive 153 mm[Hg] LYNDA BOYD MD [facility] 06-29-2022 11:12-0500 Diastolic blood pressure 77 mm[Hg] Dr. Janak Hickey Work Phone: [facility] 06-29-2022 11:12-0500 Heart rate 71 /min Dr. Janak Hickey Work Phone: [facility] 06-29-2022 11:12-0500 Respiratory rate 16 /min Dr. Janak Hickey Work Phone: [facility] 06-29-2022 11:12-0500 SaO2% (BldA) [Mass fraction] 98 % Dr. Janak Hickey Work Phone: [facility] 06-29-2022 11:12-0500 Systolic blood pressure 124 mm[Hg] Dr. Janak Hickey Work Phone: [facility] 06-29-2022 08:07-0500 Body height 175.[address] Janak Hickey Work Phone: [facility] 06-29-2022 08:07-0500 Body mass index (BMI) [Ratio] 31.7 kg/m2 Dr. Janak Hickey Work Phone: [facility] 06-29-2022 08:07-0500 Body temperature 97 [degF] Dr. Janak Hickey Work Phone: [facility] 06-29-2022 08:07-0500 Body weight 97.[address] Janak Hickey Work Phone: [facility] Encounters Encounter Date Encounter Type Care Provider Facility Start: 06-02-2024 End: 06-02-2024 josephine Hickey Facility:[facility] Start: 12-20-2023 End: 12-20-2023 ambulatory Janak Hickey Facility:[facility] Start: 11-30-2023 End: 11-30-2023 ambulatory Janak Hickey Facility:[facility] Start: 10-18-2023 End: 10-18-2023 ambulatory [facility] Work Phone: Start: 10-18-2023 End: 10-18-2023 Patient encounter procedure [facility] Work Phone: Start: 10-18-2023 End: 10-18-2023 ambulatory Edmar Pedraza Facility:[facility] Start: 09-09-2023 End: 09-09-2023 Emergency department patient visit DR JANAK HICKEY MD Facility: Start: 09-09-2023 End: 09-09-2023 Emergency department patient visit LYNDA BOYD MD [facility] Start: 06-19-2023 End: 06-19-2023 ambulatory [facility] Work Phone: Start: 06-19-2023 End: 06-19-2023 Patient encounter procedure [facility] Work Phone: Start: 10-10-2022 End: 10-10-[address] Janak Hickey Work Phone: [facility] Work Phone: Start: 10-10-2022 End: 10-10-[address] Janak Hickey Work Phone: [facility] Start: 09-04-2022 End: 09-04-[address] Janak Hickey Work Phone: [facility] Work Phone: Start: 09-04-2022 End: 09-04-[address] Janak Hickey Work Phone: [facility] Start: 07-05-2022 End: 07-05-2022 Non-patient / Non-visit Dr. Janak Hickey Work Phone: [facility] Start: 07-05-2022 End: 07-05-[address] Janak Hickey Work Phone: [facility] Start: 06-29-2022 End: 06-29-2022 Emergency department patient visit Dr. Janak Hickey Work Phone: [facility] Start: 05-29-2022 End: 05-29-2022 ambulatory [facility] Work Phone: Start: 05-29-2022 End: 05-29-2022 Patient encounter procedure [facility] Procedures Date Procedure Procedure Detail Performing Clinician Start: 10-18-2023 Diagnostic radiograp hy of abdomen Start: 10-10-2022 Diagnostic radiograp hy of abdomen Dr. Janak Hickey Work Phone: Start: 09-04-2022 Diagnostic radiograp hy of abdomen Dr. Janak Hickey Work Phone: Start: 06-29-2022 CT of abdomen and pe lvis without contrast Dr. Janak Hickey Work Phone: Kidney stone (disorder) RENE BOYD MD Plan of Treatment Date Care Activity Detail Author Patient Education ED Kidney Stone w/ Coli c [facility] Work Phone: Patient referral [facility] Work Phone: Immunizations Immunization Date Immunization Notes Care Provider Juan Luis thakkar 01-25-2018 tetanus toxoid, redu fatou diphtheria toxoid, and acellular pertussis vaccine, adsorbed LYNDA BOYD MD [facility] 07-04-2015 tetanus toxoid, redu fatou diphtheria toxoid, and acellular pertussis vaccine, adsorbed LYNDA BOYD MD [facility] Payers Date Payer Category Payer Unknown [id number] 2023 Self-pay [id number] 2023 Unknown [id number] 2009 Unknown [id number] 1960 Unknown [id number] Unknown [employer] [id number] Unknown [facility] P[employer] . [id number] Unknown [id number] Unknown [id number] Unknown [id number] Unknown [id number] Social History Date Type Detail [facility] Work Phone: Start: 1960 Sex Assigned At Male [facility] Start: 06-29-2022 End: 06-29-2022 Tobacco smoking status NHIS Unknown if ever smoked [facility] Tobacco smoking status Never smo ked tobacco (finding) [facility] Sex Assigned At Sex [facility] Functional Status Date Assessment Result Facility 09-09-2023 Functional Status Ambulation in [place], Ambulation in Room [facility] Mental Status Date Assessment Result Facility 09-09-2023 Mental Status Oriented x 4 [facility] 06-29-2022 Cognitive function Level Of Cons ciousness Awake;Alert;Appropriate;Follow s Commands [facility] Work Phone: Hospital Discharge instructions 09-09-2023 Note Date & Type Note Facility 09-09-2023 Hospital Discharg e instructions Patient Education 09/09/2023 14:01:54 Laceration, Foot: All Closures Foot Laceration: All Closures A laceration is a cut through the skin. Deep cuts may require stitches. Minor cuts may be treated with surgical tape closures or skin glue. X-rays may be done if something may have entered the skin through the cut, such as glass or rocks. You may also need a tetanus shot if you are not up to date on this vaccination and the object that caused the cut may lead to tetanus. Home care Your healthcare provider may prescribe an antibiotic. This is to help prevent infection. Follow all instructions for taking this medicine. Take the medicine every day until it is gone or you are told to stop. You should not have any left over. The healthcare provider may prescribe medicines for pain. Follow instructions for taking them. Follow the healthcare provider s instructions on how to care for the cut. You may be given instructions for keeping weight off of the area to allow the injury to heal. Follow the healthcare provider s instructions on how to care for the cut. Keep the wound clean and dry. Don't get the wound wet until you are told it is OK to do so. If the area gets wet, gently pat it dry with a clean cloth. Replace the wet bandage with a dry one. To help prevent infection, wash your hands with soap and water before and after caring for the wound. Caring for stitches: Once you no longer need to keep the stitches dry, clean the wound daily. First, remove the bandage. Then wash the area gently with soap and warm water, or as directed by the healthcare provider. Use a wet cotton swab to loosen and remove any blood or crust that forms. After cleaning, apply a thin layer of antibiotic ointment if advised. Then put on a new bandage unless you are told not to. Caring for skin glue: Don t put apply liquid, ointment, or cream on the wound while the glue is in place. Avoid activities that cause heavy sweating. Protect the wound from sunlight. Don't scratch, rub, or pick at the adhesive film. Don't place tape directly over the film. The glue should peel off within 5 to 10 days. Caring for surgical tape: Keep the area dry. If it gets wet, blot it dry with a clean towel. Surgical tape usually falls off within 7 to 10 days. If it has not fallen off after 10 days, you can take it off yourself. Put mineral oil or petroleum jelly on a cotton ball and gently rub the tape until it is removed. Once you can get the wound wet, you may shower as usual, but don't soak the wound in water. This means no tub baths or swimming. Even with proper treatment, a wound infection may sometimes occur. Check the wound daily for signs of infection listed below. Follow-up care Follow up with your healthcare provider, or as advised. Return to have stitches removed as directed. When to seek medical advice Call your healthcare provider right away if any of these occur: Wound bleeding not controlled by direct pressure Signs of infection, including increasing pain in the wound, increasing wound redness or swelling, or pus or bad odor coming from the wound Fever of 100.4 F (38. C) or higher, or as directed by your healthcare provider Stitches come apart or fall out or surgical tape falls off before 7 days Wound edges reopen Wound changes colors Numbness or weakness in the affected foot Decreased movement of the foot [id number] [employer]. [address] [place] [address]. All rights reserved. This information is not intended as a substitute for professional medical care. Always follow your healthcare professional's instructions. Follow Up Care 09/09/2023 13:11:33 With:JANAK HICKEY Address: [address] [place] [address] [place] [phone] Business (1) When:2-4 days Comments:Schedule appointment as soon as possibleWash daily and apply Neosporin or bacitracinHave sutures removed in 10 to 14 daysElevate at restFollow-up for any signs of infection [facility] Clinical Note 09-09-2023 Note Date & Type Note Facility 09-09-2023 Note Discharge Instructions Thank you for allowing [facility] to assist you with your healthcare needs. The following is important discharge information regarding your hospital visit. Diagnosis from Today's Visit Laceration of toe Toe Laceration What to Do Next Instructions from Your Care Team No qualifying data available. Post Acute Orders No qualifying data available. You Need to Schedule the Following Appointments Follow Up with JANAK HICKEY When Within 2-4 days Why: Schedule appointment as soon as possible Wash daily and apply Neosporin or bacitracin Have sutures removed in 10 to 14 days Elevate at rest Follow-up for any signs of infection Where: [address] [facility] [address] [place] [address] [phone] Business (1) Allergies NKA Medications Please ask your primary doctor or pharmacist before taking any other medication not listed, including over the counter drugs, herbal medications, vitamins and or supplements as they may interact with your home medications. What How Much When Instructions Last Dose New cephalexin (cephalexin 500 mg oral capsule) 1 cap by mouth Every 6 hours Printed Prescription Unchanged bisoprolol-hydrochlorothiazide (bisoprolol-hydrochlorothiazide 5 - 6.25 mg oral tablet) 1 tab(s) by mouth Every day Unchanged hydroCHLOROthiazide (hydroCHLOROthiazide 25 mg oral tablet) 1 tab(s) by mouth Every day Unchanged Misc Medication Unchanged ramipril (ramipril 10 mg oral capsule) 1 cap by mouth Once a day Please take this list to your next doctor s visit. Bring all medications you take, including over the counter medications, herbals and other supplements with you to your doctor s visit. Patients and families are reminded to discard old lists and to update any records with all medication providers or retail pharmacies. Education Materials Foot Laceration: All Closures A laceration is a cut through the skin. Deep cuts may require stitches. Minor cuts may be treated with surgical tape closures or skin glue. X-rays may be done if something may have entered the skin through the cut, such as glass or rocks. You may also need a tetanus shot if you are not up to date on this vaccination and the object that caused the cut may lead to tetanus. Home care Your healthcare provider may prescribe an antibiotic. This is to help prevent infection. Follow all instructions for taking this medicine. Take the medicine every day until it is gone or you are told to stop. You should not have any left over. The healthcare provider may prescribe medicines for pain. Follow instructions for taking them. Follow the healthcare provider s instructions on how to care for the cut. You may be given instructions for keeping weight off of the area to allow the injury to heal. Follow the healthcare provider s instructions on how to care for the cut. Keep the wound clean and dry. Don't get the wound wet until you are told it is OK to do so. If the area gets wet, gently pat it dry with a clean cloth. Replace the wet bandage with a dry one. To help prevent infection, wash your hands with soap and water before and after caring for the wound. Caring for stitches: Once you no longer need to keep the stitches dry, clean the wound daily. First, remove the bandage. Then wash the area gently with soap and warm water, or as directed by the healthcare provider. Use a wet cotton swab to loosen and remove any blood or crust that forms. After cleaning, apply a thin layer of antibiotic ointment if advised. Then put on a new bandage unless you are told not to. Caring for skin glue: Don t put apply liquid, ointment, or cream on the wound while the glue is in place. Avoid activities that cause heavy sweating. Protect the wound from sunlight. Don't scratch, rub, or pick at the adhesive film. Don't place tape directly over the film. The glue should peel off within 5 to 10 days. Caring for surgical tape: Keep the area dry. If it gets wet, blot it dry with a clean towel. Surgical tape usually falls off within 7 to 10 days. If it has not fallen off after 10 days, you can take it off yourself. Put mineral oil or petroleum jelly on a cotton ball and gently rub the tape until it is removed. Once you can get the wound wet, you may shower as usual, but don't soak the wound in water. This means no tub baths or swimming. Even with proper treatment, a wound infection may sometimes occur. Check the wound daily for signs of infection listed below. Follow-up care Follow up with your healthcare provider, or as advised. Return to have stitches removed as directed. When to seek medical advice Call your healthcare provider right away if any of these occur: Wound bleeding not controlled by direct pressure Signs of infection, including increasing pain in the wound, increasing wound redness or swelling, or pus or bad odor coming from the wound Fever of 100.4 F (38. C) or higher, or as directed by your healthcare provider Stitches come apart or fall out or surgical tape falls off before 7 days Wound edges reopen Wound changes colors Numbness or weakness in the affected foot Decreased movement of the foot 1354-0597 [employer]. [address] [place] [address], [place] [address]. All rights reserved. This information is not intended as a substitute for professional medical care. Always follow your healthcare professional's instructions. Additional Information VACCINATE! IT SAVES LIVES! Members of the community who have not yet received the COVID-19 vaccine and would like to receive it can visit one of [facility] vaccine clinics. There are many vaccine clinic locations within the [facility]. For locations and available times, please visit www.gettheshot.coronavirus.[place].gov/. It is important to note that some COVID mobile vaccine clinics are held outdoors and may be canceled in rainy or stormy conditions. To learn more about pediatric vaccinations (ages 5-11), we invite you to visit the [employer] webpage. [email or web address]/[email or web address] stions.[email or web address] To learn more about the COVID-19 vaccine, we invite you to visit the CDC website for a list of frequently asked questions. https://www.cdc.gov/coronavirus/2019-nco v/vaccines/faq.html [facility] Patient Portal Access Instructions: Stay connected with your healthcare team and access your personal medical information anytime with the [facility] Patient Portal. If you would like a full copy of your medical records please contact the [facility] Medical Records Department Sunday through Sunday between 8a.m. and 4:30p.m. Please follow the directions below to access the portal: 1.Access the email account you provided upon registration to the hospital.2.Look for an invitation email from [facility].3.Open the email and access the invitation link: Accept Invitation to [facility].Fill in the required bocanegra to create your account. Sign into [email or web address] with your username and password that you created in the above steps to stay up to date. You can then view a summary of results, a summary of your visits, and the ability to download your summaries to your computer or send the information securely to a physician. Remember that your healthcare information is confidential, so carefully consider who you will allow to register on the [employer] Patient Portal for access to your information. You can also access the [employer] Patient Portal on the [employer] pernell. Simply click on Health Records under Health Data and then click on the [employer] logo. HOW TO SAFELY DISPOSE OF PRESCRIPTION MEDICATIONS Please use one of the following methods to safely dispose of your unused medications. 1.Use a drug disposal kit: the drug disposal pouch allows you to safely discard your old and unused drugs. Ask your nurse to give you one when you are discharged.2.Visit a local take-back location: Many local pharmacies and police departments have programs that collect old and unwanted prescription drugs. Call your local pharmacy or go to http://[employer]/7M1En9y to find one close to you.3.Make use of household items: Use cat litter or old coffee grounds to dispose medications if other options are not available. Mix your drugs with these household products, seal them in an airtight container and throw it into the garbage. Call [facility]: [phone] to be sure your drugs can be disposed of in this way. Some medicines may require a different approach.4.Never flush your medications down the toilet. IF YOU HAVE BEEN PRESCRIBED AN OPIOIDS FOR PAIN If you have been prescribed an opioid (such as hydrocodone, oxycodone or morphine), it is critical to understand the possible side effects and risks of opioid pain medications. Even when taken as directed, opioids can have several side effects including: Tolerance, meaning you might need to take more of a medication for the same pain relief. Nausea, vomiting and/or constipation. Sleepiness, dizziness, dry mouth, confusion, depression or itching. Physical dependence, meaning you have withdrawal symptoms when a medication is stopped ? this can develop within a few days. KNOW YOUR RESPONSIBILITIES It is important to know exactly how much and how often to take the opioid pain medications you are prescribed. Never take opioids in higher amounts or more often than prescribed. Do not combine opioids with alcohol or other drugs that cause drowsiness, such as benzodiazepines, also known as benzos, including diazepam and alprazolam, muscle relaxants or sleep aids. Never sell or share prescription opioids. This is illegal. Store opioids in a secure place and out of reach of others (including children, family, friends and visitors). The last page(s) of this document has been signed and retained as a CHART COPY Signatures Patient Education Materials Laceration, Foot: All Closures Medication Leaflets My discharge plan and instructions have been reviewed and explained to me and I,SMITH RADHA S understand my current condition and have read and understand these discharge instructions. I have received a written copy of the plan/instructions. If I have questions, I am aware that I should contact my doctor. 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: Date/Time: Relationship to Patient: Witness Name/Signature: ____ Date/Time: [facility] Evaluation + Plan note Note Date & Type Note Facility Evaluation + Plan note No data available for this section [facility] Evaluation note Note Date & Type Note Facility Evaluation note No assessment information [facility] Work Phone: Chief Complaint and Reason for Visit Chief Complaint FLANK PAIN PRE OP PRE OP Advance Directives No Advanced Directives Records Found Advance Directive Response Recorded Date/ Time Living Will No June 29 8:28am Power of Cylinder Tester No June 29, 2022 8:28am Advance Directive Response Recorded Date/ Time Living Will No June 29 9:28am Power of Cylinder Tester No June 29, 2022 9:28am Summary Purpose Family History No Family History Records Found Additional Source Comments Goals (unrecognized section and content) Goals may be documented in a n alternate sectionGoals may be documented in an alternate sectionGoals may be documented in an alternate sectionGoals may be documented in an alternate section No data available for this sectionGoals may be documented in an alternate section Care Teams (unrecognized sec tion and content) Team Status: Active Member Role Status Dates Dr. Juvencio Mccauley MD Family Provider Active Dr. Janak Hickey MD Primary Care Provider Active Team Status: Active Member Role Status Dates Dr. Janak Hickey MD Primary Care Provider Active Dr. Janak Corea MD Attending Provider Active Dr. Edmar Pedraza MD Referring Provider Active Team Status: Inactive Member Role Status Dates Dr. Janak Hickey MD Primary Care Provi grazyna, Attending Provider, Referring Provider Active Team Status: Inactive Member Role Status Dates Dr. Janak Hickey MD Primary Care Provider Active Dr. Eric Olivo DO Attending Provider, Emergency Provider Active Team Status: Inactive Member Role Status Dates Dr. Janak Hickey MD Primary Care Provider Active Dr. Edmar Pedraza MD Attending Provider Active Team Status: Inactive Member Role Status Dates Dr. Janak Hickey MD Primary Care Provider Active Dr. Edmar Pedraza MD Attending Provider, Referr ing Provider Active (unrecognized sect ion and content) No Status Records FoundNo Status Records Found INFORMATION SOURCE (unrecogn ized section and content) DATE CREATED AUTHOR 09/19/2023 [facility] ([place]) DATE CREATED AUTHOR AUTHOR'S ORGANIZ ATION 07/03/2024 [facility] FOR RECORDS PERTAINING TO PATIENTS WHO ARE OR HAVE BEEN ENROLLED IN A CHEMICAL DEPENDENCY/SUBSTANCEABUSE PROGRAM, SOME INFORMATION MAY BE OMITTED. This clinical summary was aggregated from multiple sources. Caution should be exercised in using it in the provision of clinical care. This summary normalizes information from multiple sources, and as a consequence, information in this document may materially change the coding, format and clinical context of patient data. In addition, data may be omitted in some cases. CLINICAL DECISIONS SHOULD BE BASED ON THE PRIMARY CLINICAL RECORDS. [employer] [facility]. provides no warranty or guarantee of the accuracy or completeness of information in this document.
[2024-12-26 10:53] LABS: Anion Gap 11 (5-15); BUN 14 mg/dL (4-19); BUN/Creat Ratio 12.5 RATIO (10-20); Calcium,Total 9.3 mg/dL (7.6-11.0); Carbon Dioxide 24.7 mmol/L (21.0-32.0); Chloride 104 mmol/L (98-108); Creatinine, Serum 1.09 mg/dL (0.70-1.20); EST Glomerular Filtration Rate 76 (>60); Glucose 116 mg/dL (70-99); Potassium 3.4 mmol/L (3.3-5.1); Sodium Level 139 mmol/L (133-145)
== END | disposition home or self-care (01) ==
LOC: MFPLAB 08:30
PROVIDERS: PCP Family Medicine; Referring Provider Family Medicine; Visit Provider Family Medicine
DX: I10 Essential (primary) hypertension (principal)
CPT/HCPCS: 36415; 80048

== ENCOUNTER → 2025-06-29 | Outpatient (CLI) | payer BC, SELFPAY ==
[2025-06-29 10:37] LABS: Hematocrit 44.0 % (40-54); Hemoglobin 15.5 g/dL (13.0-16.5); Immature Granulocytes Count 0.020 X10^3/uL (0.0-0.0); Mean Corp Hgb Conc 35.2 g/dL (32-36); Mean Corpuscular Volume 86.1 fL (80-94); Mean Platelet Vol. 11.4 fl (6.2-12.0); NRBC Flagged by Analyzer 0 % (0-5); Platelet Count 219 K/mm3 (150-450); RBC Distribution Width CV 12.4 % (11.6-14.6); RBC Distribution Width SD 38.9 fl (35.1-43.9); Red Blood Count 5.11 M/mm3 (4.6-6.2); White Blood Count 7.7 K/mm3 (4.4-11.0)
[2025-06-29 11:10] LABS: Anion Gap 10 (5-15); BUN 15 mg/dL (4-19); BUN/Creat Ratio 12.4 RATIO (10-20); Calcium,Total 10.0 mg/dL (7.6-11.0); Carbon Dioxide 28.5 mmol/L (21.0-32.0); Chloride 100 mmol/L (98-108); Glucose 129 mg/dL (70-99); Potassium 3.2 mmol/L (3.3-5.1)
== END | disposition home or self-care (01) ==
LOC: MFPLAB 08:25
PROVIDERS: PCP Family Medicine; Visit Provider Family Medicine
DX: E78.00 Pure hypercholesterolemia, unspecified (principal); R53.83 Other fatigue; R73.9 Hyperglycemia, unspecified
CPT/HCPCS: 36415; 80048; 83036; 84403; 84443; 85025

== ENCOUNTER → 2025-07-21 | Outpatient (CLI) | payer BC, SELFPAY ==
[2025-07-21 11:04] LABS: Anion Gap 19 (7-18); BUN 16 mg/dL (4-19); BUN/Creat Ratio 13.1 RATIO (10-20); Calcium,Total 9.5 mg/dL (7.6-11.0); Carbon Dioxide 20.8 mmol/L (20.0-29.0); Chloride 100 mmol/L (96-106); Glucose 116 mg/dL (70-99); Potassium 3.4 mmol/L (3.5-5.1)
== END | disposition home or self-care (01) ==
LOC: MFPLAB 08:27
PROVIDERS: PCP Family Medicine; Referring Provider Family Medicine; Visit Provider Family Medicine
DX: E87.6 Hypokalemia (principal)
CPT/HCPCS: 36415; 80048